=== PATIENT | male | born 1970 | race Caucasian/White ===

== ENCOUNTER 2021-11-29 17:05 | Inpatient (IN) ==
--- NOTE | 2021-11-29 17:37 | CT ---
HISTORYAMSSTUDYBRAIN W/O CONCOMPARISONNone available.TECHNIQUEAxial non-contrast images of the head with coronal and sagittal reformats.Radiation dose: 2849.60 mGy-cm total DLPFINDINGSNo abnormal areas of acute attenuation in the brain parenchyma.Maher-white differentiation remains intact.No intracranial, extra-axial, fluid collection.No hemorrhage.No mass, mass effect or midline shift.No ventriculomegaly.No acute fracture.Sinuses are well aerated.Mastoid air cells are well aerated.Globes and intraorbital contents are unremarkable.IMPRESSIONNo acute intracranial abnormality identified.Electronically signed by: Ari Ivy (November 29, 2021 17:35:58)
[2021-11-29] MEDS ORDERED: NS 1,000 ML IV 1,000 ML ONE ×2 (17:40→20:10)
[2021-11-29] MEDS ORDERED: NS 1,000 ML IV 1,000 ML IV ONE (17:47)
--- NOTE | 2021-11-29 18:03 | DR.AMS ---
HPI Time Seen Time Seen by Provider: 11/29/21 17:33 PCP Primary Care Physician: MD RODGER HPI Comment HPI Comment: A 51 y/o male presenting via EMS with AMS. hx. was obtained from his who noted the change abbout an hour prior to EMS being activated. She was trying to see if she could cajoule and arouse him. He has hx. of a Stage 3 rectal cancer and was just about to be fed. She states she got SBP of 114 at home and HR was in the 120s. His words are just very sparse and not his baseline. He had been getting Chemotherapy until 3 weeks ago but that was discontinued due to so much weight loss. Complaint Chief Complaint:: EMS states reported pt became weak and altered approx 1 hour prior to her calling 911. Pt is alert on arrival but does not answer questions. He will say " yeah" and "huh". He is gazing around room and will not focus on nurse speaking to him. Pt was taken to CT immediatly on arrival to ER. COVID-19 Coronavirus risk:travel/contact w/high risk person: No Has patient experienced Coronavirus symptoms: No Reviewed Nurses Notes Reviewed: Yes Source History Provided: Family Member and EMS Mode of Arrival Mode of Arrival: EMS Timing Onset of Chief Complaint: 11/29/21 Came On: Gradually Quality Quality: Decreased Alertness Context Recent: None History Of: Immunosuppresion Associated Signs and Symptoms Associated Signs and Symptoms: Confusion PMH PMH Past Medical History: Yes Past Medical History: GERD and Hypertension Past Medical History Comment: cancer Past Surgical History: Yes Past Surgical History Comment: port placement Family History History of Family Medical Conditions: Yes Family Medical History: Hypertension Social History Do you use any recreational Drugs:: No Travel Risk Coronavirus risk:travel/contact w/high risk person: No Has patient experienced Coronavirus symptoms: No Infectious screening In the last 2 months have you had wt loss of >10#?: NO Have you had fever, night sweats or hemotysis?: No Have you traveled outside the country in the last 6 months?: No Isolation: Standard ROS Review of Systems Constitutional: No Symptoms Reported Eyes: No Symptoms Reported ENTM: No Symptoms Reported Respiratoy: No Symptoms Reported Cardiovascular: No Symptoms Reported Gastrointestinal/Abdominal: No Symptoms Reported Genitourinary: No Symptoms Reported Neurological: Other (decreased ) Musculoskeletal: No Symptoms Reported Integumentary: No Symptoms Reported Hematologic/Lymphatic: No Symptoms Reported Endocrine: No Symptoms Reported Psychiatric: No Symptoms Reported PE Vitals Vital Signs: Temp Pulse Resp BP BP Pulse Ox 11/29/21 18:30 143 H 25 H 112/79 11/29/21 18:15 142 H 37 H 11/29/21 18:14 143 H 37 H 119/60 11/29/21 18:11 144 H 35 H 11/29/21 18:07 92/56 11/29/21 18:01 92/65 11/29/21 18:00 94/64 11/29/21 17:56 137 H 28 H 11/29/21 17:48 135 H 20 97/64 11/29/21 17:45 138 H 21 11/29/21 17:38 143 H 22 98/68 11/29/21 17:32 96.9 F L 144 H 20 100/61 96 11/29/21 17:30 146 H 18 11/29/21 17:18 151 H 27 H 93 L 11/29/21 17:17 100/61 08/28/21 11:18 121/74 08/02/19 04:31 174/84 General Limitations: No Limitations General Appearance: In No Apparent Distress, Lethargic, Cachectic and Other (awake) Head Head Exam: Normal Inspection, Atraumatic and Normocephalic Eyes Eye exam: Normal Appearance and PERRL ENT ENT Exam: Normal Exam, Normal Oropharynx, Normal External Ear Exam and Mucous Membranes Moist Neck Neck Exam: Normal Inspection, Full ROM and Trachea Midline Chest Chest Inspection: Normal Inspection, Symmetric Chest Wall Rise and Other (a port-a cath is noted inferior to the Lt. lateral Clavicle ) Respiratory Respiratory Exam: Normal Lung Sounds Bilat Cardiovascular Cardiovascular Exam: Regular Rate, Normal Rhythm, Normal Heart Sounds, +S1 and +S2 Abdominal Exam Abdominal Exam: Normal Inspection, Normal Bowel Sounds and Soft Extremities Extremities Exam: Normal Inspection and Full ROM Back Back Exam: Normal Inspection Neurological Neurological Exam: Alert Psychological Psychiatric Exam: Flat Affect Expanded Psychiatric Exam: Poor Eye Contact Skin Skin Exam: Intact MDM Additional Information Obtained Additional Information Obtained From: Family Differential Diagnosis Metabolic: Dehydration and Hypercalcemia Infectious: Sepsis and UTI COURSE Treatment Treatment: He has a leukocytosis with unclear infectious source. He had been tachycardic and hypotensive. both of these responded to IVF chalenges. He was supplemented with KRider per protocol and Magnessium supplementation also. He had IV Zosyn for abx. coverage. I had spoke with his spouse about presentation, test results and needing to be hospitalzed. She verbalized understanding of this. I also spoke with on-call provider (Dr. Muro) and he agrees to admission. Bridge admit orders have been placed. Reevaluation 1st: Unchanged Education/Counseling Education/Counseling: Family, Education and Counseling Educated On: Treatment, Diagnosis, Prognosis and Needs for Follow Up Critical Care Notes Total Time (mins): 1 Critical Diagnosis: Change in MS, Hypokalemia, Hypomagnesemia, Leukocytosis, Hypotension, Tachycardia,. Critical Interventions: Interpretation of diagnostics , management of fluid and electrolyte imbalance, antibiotics, etc ROR Labs Reviewed Result Diagrams: 11/29/21 17:51 11/29/21 17:51 Laboratory: WBC 21.8 X10^3/uL (3.6-10.0) H 11/29/21 17:51 RBC 4.28 X10^6/uL (4.7-6.0) L 11/29/21 17:51 Hgb 12.3 g/dL (13.5-18.0) L 11/29/21 17:51 Hct 36.6 % (42.0-54.0) L 11/29/21 17:51 MCV 85.4 fL (80.0-100.0) 11/29/21 17:51 MCH 28.7 pg (27.0-34.0) 11/29/21 17:51 MCHC 33.6 g/dL (33.0-35.0) 11/29/21 17:51 RDW 15.7 % (11.6-16.5) 11/29/21 17:51 Plt Count 236 X10^3/uL (150.0-450.0) 11/29/21 17:51 Plt Count Comment Adequate (ADEQUATE) 11/29/21 17:51 MPV 8.8 fL (7.4-11.0) 11/29/21 17:51 Neut % (Auto) 96.8 % (42.0-75.0) H 11/29/21 17:51 Lymph % (Auto) 1.7 % (21.0-51.0) L 11/29/21 17:51 [place] % (Auto) 0.6 % (0.0-13.0) 11/29/21 17:51 Eos % (Auto) 0.7 % (0.9-2.9) L 11/29/21 17:51 Baso % (Auto) 0.2 % (0.2-1.0) 11/29/21 17:51 Neut # (Auto) 21.1 x10^3/uL (2.2-4.8) H 11/29/21 17:51 Lymph # (Auto) 0.4 X10^3/uL (1.3-2.9) L 11/29/21 17:51 [place] # (Auto) 0.1 x10^3/uL (0.3-0.8) L 11/29/21 17:51 Eos # (Auto) 0.1 x10^3/uL (0.0-0.2) 11/29/21 17:51 Baso # (Auto) 0.0 X10^3/uL (0.0-0.1) 11/29/21 17:51 Absolute Nucleated RBC 0.0 /100WBC 11/29/21 17:51 Total Counted 100 11/29/21 17:51 Neutrophils % (Manual) 95 % (39-76) H 11/29/21 17:51 Lymphocytes % (Manual) 4 % (13-43) L 11/29/21 17:51 Monocytes % (Manual) 1 % (4-9) L 11/29/21 17:51 Plt Morphology Comment Normal (NORMAL) 11/29/21 17:51 RBC Morphology Normal (NORMAL) 11/29/21 17:51 Sodium 133 mmol/L (136-145) L 11/29/21 17:51 Corrected Sodium TNP 11/29/21 17:51 Potassium 2.4 mmol/L (3.5-5.1) L* 11/29/21 17:51 Chloride 92 mmol/L (98-107) L 11/29/21 17:51 Carbon Dioxide 25.6 mmol/L (21-32) 11/29/21 17:51 BUN 11 mg/dL (7-18) 11/29/21 17:51 Creatinine 1.07 mg/dL (0.70-1.30) 11/29/21 17:51 Est GFR (MDRD) Af Amer > 60 (>60) 11/29/21 17:51 Est GFR (MDRD) Non-Af > 60 (>60) 11/29/21 17:51 Glucose 91 mg/dL (65-99) 11/29/21 17:51 Calcium 8.5 mg/dL (8.5-10.1) 11/29/21 17:51 Corrected Calcium 10.7 mg/dL (8.5-10.1) H 11/29/21 17:51 Magnesium 1.6 mg/dL (1.7-2.9) L 11/29/21 17:51 Total Bilirubin 0.70 mg/dL (0.2-1.0) 11/29/21 17:51 AST 45 Units/L (15-37) H 11/29/21 17:51 ALT 20 Units/L (12-78) 11/29/21 17:51 Alkaline Phosphatase 291 Units/L (46-116) H 11/29/21 17:51 Ammonia < 10.0 umol/L (11-32) L 11/29/21 17:51 Total Protein 6.7 g/dL (6.4-8.2) 11/29/21 17:51 Albumin 1.3 g/dL (3.4-5.0) L 11/29/21 17:51 Globulin 5.4 g/dL (2.5-4.5) H 11/29/21 17:51 Albumin/Globulin Ratio 0.2 Ratio (1.1-2.1) L 11/29/21 17:51 Specimen Type Catherized urine 11/29/21 18:15 Urine Color Yellow (YELLOW) 11/29/21 18:15 Urine Appearance Slightly hazy (CLEAR) 11/29/21 18:15 Urine pH 6.0 (5.0 - 8.0) 11/29/21 18:15 Ur Specific [place] 1.015 (1.000-1.030) 11/29/21 18:15 Urine Protein 2+ (NEGATIVE) 11/29/21 18:15 Urine Glucose (UA) Negative (NEGATIVE) 11/29/21 18:15 Urine Ketones Negative (NEGATIVE) 11/29/21 18:15 Urine Blood 1+ (NEGATIVE) 11/29/21 18:15 Urine Nitrite Negative (NEGATIVE) 11/29/21 18:15 Urine Bilirubin Negative (NEGATIVE) 11/29/21 18:15 Urine Urobilinogen Normal (NORMAL) 11/29/21 18:15 Ur Leukocyte Esterase Negative (NEGATIVE) 11/29/21 18:15 Urine RBC 3-5 /HPF (0-3) A 11/29/21 18:15 Urine WBC 0-2 /HPF (0-5) 11/29/21 18:15 Ur Squamous Epith Cells Few /HPF (NEGATIVE) 11/29/21 18:15 Ur Transition Epith Cell Few /HPF (NEGATIVE) 11/29/21 18:15 Ur Renal Epithelial Cell Few /HPF (NEGATIVE) 11/29/21 18:15 Amorphous Sediment 1+ /HPF (NEGATIVE) 11/29/21 18:15 Urine Bacteria Trace /HPF (NEGATIVE) 11/29/21 18:15 Urine Sperm Few /HPF (NEGATIVE) 11/29/21 18:15 Ur Culture Indicated? No/not indicated 11/29/21 18:15 Urine Opiates Screen Negative (NEG=<300) 11/29/21 18:15 Urine Methadone Screen Negative (NEG=<300) 11/29/21 18:15 Ur Barbiturates Screen Negative (NEG=<200) 11/29/21 18:15 Ur Phencyclidine Scrn Negative (NEG=<25) 11/29/21 18:15 Ur Amphetamines Screen Negative (NEG=<1000) 11/29/21 18:15 U Benzodiazepines Scrn Positive (NEG=<200) 11/29/21 18:15 Urine Cocaine Screen Negative (NEG=<300) 11/29/21 18:15 U Marijuana (THC) Screen Positive (NEG=<50) A 11/29/21 18:15 SARS-CoV-2 (PCR) Negative (NEGATIVE) 11/29/21 19:55 EKG Rate: 142 [place]: Normal Rhythm: ST Block: None Hypertrophy: None ST: Normal Opioid Opioid Risk Tool Age (Michael box if 16-45): No History of Preadolescent Sexual Abuse: No Total: 0 Total Score Risk Category: Low Risk Copyright: [employer]ley LR predicting aberrant behaviors Diagnosis Discharge Problem: Acute hypokalemia, Acute hypotension, Tachycardia, Neutrophilic leukocytosis, Hypomagnesemia, Rectal cancer Altered mental status Qualifiers: Altered mental status type: somnolence Qualified Code(s): R40.0 - Somnolence
[2021-11-29 18:15] LABS: BASOPHILS % (AUTO) 0.2 % (0.2-1.0); EOSINOPHILS # (AUTO) 0.1 x10^3/uL (0.0-0.2); EOSINOPHILS % (AUTO) 0.7 % (0.9-2.9); HEMATOCRIT 36.6 % (42.0-54.0); HEMOGLOBIN 12.3 g/dL (13.5-18.0); LYMPHOCYTES # (AUTO) 0.4 X10^3/uL (1.3-2.9); LYMPHOCYTES % (AUTO) 1.7 % (21.0-51.0); MEAN CORPUSCULAR HEMOGLOBIN 28.7 pg (27.0-34.0); MEAN CORPUSCULAR HGB CONC 33.6 g/dL (33.0-35.0); MEAN CORPUSCULAR VOLUME 85.4 fL (80.0-100.0); MEAN PLATELET VOLUME 8.8 fL (7.4-11.0); MONOCYTES # (AUTO) 0.1 x10^3/uL (0.3-0.8); MONOCYTES % (AUTO) 0.6 % (0.0-13.0); NEUTROPHILS # (AUTO) 21.1 x10^3/uL (2.2-4.8); NEUTROPHILS % (AUTO) 96.8 % (42.0-75.0); RED BLOOD COUNT 4.28 X10^6/uL (4.7-6.0); RED CELL DISTRIBUTION WIDTH 15.7 % (11.6-16.5); WHITE BLOOD COUNT 21.8 X10^3/uL (3.6-10.0)
[2021-11-29 18:20] LABS: ALANINE AMINOTRANSFERASE 20 Units/L (12-78); ALBUMIN 1.3 g/dL (3.4-5.0); ALKALINE PHOSPHATASE 291 Units/L (46-116); ASPARTATE AMINO TRANSFERASE 45 Units/L (15-37); BLOOD UREA NITROGEN 11 mg/dL (7-18); CALCIUM 8.5 mg/dL (8.5-10.1); CARBON DIOXIDE 25.6 mmol/L (21-32); CHLORIDE 92 mmol/L (98-107); COR CA(FOR HYPOALB) 10.7 mg/dL (8.5-10.1); CREATININE 1.07 mg/dL (0.70-1.30); SODIUM 133 mmol/L (136-145); TOTAL PROTEIN 6.7 g/dL (6.4-8.2); eGFR NON BLACK RACES > 60 (>60)
[2021-11-29 18:22] LABS: BILIRUBIN,URINE NEGATIVE (NEGATIVE); BLOOD/HEMOGLOBIN,URINE 1+ (NEGATIVE); GLUCOSE, URINE NEGATIVE (NEGATIVE); KETONES,URINE NEGATIVE (NEGATIVE); LEUKOCYTE ESTERASE ,URINE NEGATIVE (NEGATIVE); NITRITES,URINE NEGATIVE (NEGATIVE); PROTEIN,URINE 2+ (NEGATIVE); UROBILINOGEN,URINE NORMAL (NORMAL)
[2021-11-29 18:26] LABS: AMMONIA < 10.0 umol/L (11-32)
[2021-11-29 18:28] LABS: APPEARANCE,URINE SLIGHTLY HAZY (CLEAR); COLOR,URINE YELLOW (YELLOW)
[2021-11-29] MEDS ORDERED: K-RIDER 10 MEQ/NS 100 ML 10 MEQ/100 ML BAG IV ONE ×6 (18:35→21:30)
[2021-11-29 18:41] LABS: BACTERIA,URINE TRACE /HPF (NEGATIVE); RENAL EPITHELIAL CELLS,URINE FEW /HPF (NEGATIVE); SQUAMOUS EPITHELIAL CELL,UR FEW /HPF (NEGATIVE); TRANSITIONAL EPI CELLS,URINE FEW /HPF (NEGATIVE)
[2021-11-29 18:42] LABS: SPERM,URINE FEW /HPF (NEGATIVE)
[2021-11-29 18:46] LABS: PLATELET MORPHOLOGY COMMENT NORMAL (NORMAL)
--- NOTE | 2021-11-29 19:04 | RAD ---
HISTORYALTERED MENTAL STATUS Relevant Clinical InformationSTUDYCHEST, 1 VIEWCOMPARISONFINDINGSHeart size is normal. There is a left subclavian piedad catheter with tip in the superior vena cava. Pulmonary blood flow is congested. There is prominence of interstitial markings diffusely, right worse than left. This could be due to edema but infection is not excluded. There is no pleural effusion.IMPRESSIONNonspecific prominence of the interstitial markings. Question interstitial edema versus atypical infection..Electronically signed by: Lalit Negro (November 29, 2021 19:03:32)
[2021-11-29] MEDS ORDERED: ATIVAN INJ 2 MG VIAL IVP ONE (19:39)
[2021-11-29] MEDS ORDERED: ZOSYN VIAL 3.375 GRAMS 3.375 G in NS 100 ML IV 100 ML IV ONE (19:40)
[2021-11-29] MEDS ORDERED: ATIVAN INJ 2 MG VIAL ONE (19:45)
[2021-11-29] MEDS ORDERED: ZOSYN VIAL 3.375 GRAMS IV ONE (19:45)
[2021-11-29] MEDS ORDERED: NS 100 ML IV 100 ML ONE (19:45)
[2021-11-29] MEDS: NS 1,000 ML IV 1,000 ML IV SCH ×2 (20:19→22:31)
[2021-11-29] MEDS ORDERED: CARDIZEM INJ 50 MG VIAL IVP ONE (20:24)
[2021-11-29] MEDS ORDERED: MAGNESIUM SULFATE 1 GRAM/100 mL PREMIX 1 G/100 ML BAG IV ONE ×2 (21:01→21:36)
[2021-11-29] MEDS: MAGNESIUM SULFATE 1 GRAM/100 mL PREMIX 1 G/100 ML BAG IV SCH ×2 (21:17→21:39)
[2021-11-29] MEDS: MAGNESIUM SULFATE 1 GRAM/100 mL PREMIX 1 G/100 ML BAG IV ONE (21:37)
[2021-11-29 23:20] VITALS: BMI 18.6
[2021-11-30 04:48] LABS: BASOPHILS % (AUTO) 0.2 % (0.2-1.0); EOSINOPHILS % (AUTO) 0.1 % (0.9-2.9); HEMATOCRIT 27.7 % (42.0-54.0); LYMPHOCYTES # (AUTO) 0.9 X10^3/uL (1.3-2.9); LYMPHOCYTES % (AUTO) 3.8 % (21.0-51.0); MEAN CORPUSCULAR HEMOGLOBIN 28.9 pg (27.0-34.0); MEAN CORPUSCULAR HGB CONC 33.6 g/dL (33.0-35.0); MEAN CORPUSCULAR VOLUME 86.1 fL (80.0-100.0); MEAN PLATELET VOLUME 9.2 fL (7.4-11.0); MONOCYTES # (AUTO) 0.9 x10^3/uL (0.3-0.8); NEUTROPHILS # (AUTO) 21.3 x10^3/uL (2.2-4.8); NEUTROPHILS % (AUTO) 91.9 % (42.0-75.0); RED BLOOD COUNT 3.22 X10^6/uL (4.7-6.0); RED CELL DISTRIBUTION WIDTH 15.5 % (11.6-16.5); WHITE BLOOD COUNT 23.1 X10^3/uL (3.6-10.0)
[2021-11-30 05:03] LABS: ALANINE AMINOTRANSFERASE 16 Units/L (12-78); ALBUMIN 0.9 g/dL (3.4-5.0); ALKALINE PHOSPHATASE 157 Units/L (46-116); ASPARTATE AMINO TRANSFERASE 27 Units/L (15-37); BLOOD UREA NITROGEN 12 mg/dL (7-18); CALCIUM 7.6 mg/dL (8.5-10.1); CARBON DIOXIDE 27.4 mmol/L (21-32); CHLORIDE 100 mmol/L (98-107); COR CA(FOR HYPOALB) 10.1 mg/dL (8.5-10.1); CREATININE 0.61 mg/dL (0.70-1.30); SODIUM 135 mmol/L (136-145); eGFR NON BLACK RACES > 60 (>60)
[2021-11-30] MEDS: NS 1,000 ML IV 1,000 ML IV SCH ×4 (05:11→22:12)
[2021-11-30] MEDS: ZOSYN VIAL 3.375 GRAMS 3.375 G in NS 100 ML IV 100 ML IV SCH ×3 (05:11→22:12)
[2021-11-30 05:19] LABS: HEMOGLOBIN 9.3 g/dL (13.5-18.0)
[2021-11-30 05:29] LABS: BAND NEUTROPHILS % 7 % (0-10); PLATELET MORPHOLOGY COMMENT NORMAL (NORMAL); TARGET CELLS PRESENT
[2021-11-30] MEDS ORDERED: PHARMACY CONSULT - TPN XX SCH (09:00)
[2021-11-30 11:47] LABS: CRYPTOSPORIDIUM PARVUM ANTIGEN NEGATIVE (NEGATIVE); GIARDIA LAMBLIA ANTIGEN NEGATIVE (NEGATIVE)
[2021-11-30] MEDS ORDERED: DEXTROSE 10% 1,000 ML IV PRN (12:19)
[2021-11-30] MEDS ORDERED: NovoLIN R (or HumuLIN R) SUBCUT PRN (12:19)
[2021-11-30] MEDS: CLINIMIX 5 %/20 % 1,000 ML with MVI INJ (ADULT) 10 ML, TPN ELECTROLYTES 20 ML IV SCH ×6 (13:15→22:09)
[2021-11-30 13:21] LABS: PHOSPHORUS 3.4 mg/dL (2.6-4.7)
--- NOTE | 2021-11-30 15:27 | DR.H&P ---
H&P History & Physical for Day of: H&P Date: 11/30/21 Chief Complaint Chief Complaint: Altered mental status Allergies Allergies Allergy/AdvReac Type Severity Reaction Status Date / Time No Known Drug Allergies Allergy Verified 08/02/19 00:59 History of Present Illness History of Present Illness: Pt is a 51 year old male with medical history of colorectal cancer(followed by Dr Vicente Spence) presenting with altered mental status. Pt's noted the change an hour before presentation at the ER that included confusion. She states he has been weak and has had reduced po intake with weight loss. He had been getting chemotherapy until 2-3 weeks ago and recently had neupogen due to leukopenia. Labs/imaging: Wbc 23.1, Hgb 9.3, Plt 128, Na 135, K 2.4>3.4, Creatinine 0.61, Glucose 96, Mag 1.6>2.0, UA negative, Ammonia negative, Toxicology:+thc, +benzodiazepine, COVID-19 negative, Blood cultures pending, CT head: No acute intracranial abnormality. CXR was obtained that revealed: Nonspecific prominence of the interstitial markings. Question interstitial edema versus atypical infection. Pt admitted for altered mental status and infection of unknown source at this time. He is still altered on exam. Will keep NPO and start nutritional supplementation TPN, IVF NS, and antibiotics Zosyn, as we await culture results. Repeat CXR in the morning to rule out pneumonia. Replete potassium and magnesium per protocol. Pt does have loose stools will get culture, ova/parasite, and C. diff PCR. Continue to closely monitor and follow up labs/imaging. Time spent on clinical assessment, reviewing labs and imaging, decision making, and documentation greater than 45 minutes. Past Medical History Past Medical History: GERD and Hypertension Family History Family Medical History: Cancer Social History Does patient currently use any type of tobacco product: Yes Have you used tobacco products in the last 12 months: Yes Type of Tobacco Use: Cigarettes How many years tobacco product used: 30 Alcohol Use: None Drug Use: Marijuana Medications Home Medications: No Known Drug Allergies Allergy (Verified 08/02/19 00:59) Labs Result Diagrams: 12/01/21 05:23 12/01/21 03:14 Labs: 11/30/21 08:20 Stool - Final Laboratory WBC 23.1 X10^3/uL (3.6-10.0) H 05/16/22 04:27 RBC 3.22 X10^6/uL (4.7-6.0) L 11/30/21 04:27 Hgb 9.3 g/dL (13.5-18.0) L D 11/30/21 04:27 Hct 27.7 % (42.0-54.0) L 11/30/21 04:27 MCV 86.1 fL (80.0-100.0) 11/30/21 04: MCH 28.9 pg (27.0-34.0) 11/30/21 04: MCHC 33.6 g/dL (33.0-35.0) 11/30/21: RDW 15.5 % (11.6-16.5) 11/30/21: Plt Count 128 X10^3/uL (150.0-450.0) L 11/30/21 04: Plt Count Comment Decreased (ADEQUATE) 11/30/21 04: MPV 9.2 fL (7.4-11.0) 11/30/21 04: Neut % (Auto) 91.9 % (42.0-75.0) H 11/30/21 04: Lymph % (Auto) 3.8 % (21.0-51.0) L 11/30/21 04: [place] % (Auto) 4.0 % (0.0-13.0) 11/30/21 04: Eos % (Auto) 0.1 % (0.9-2.9) L 11/30/21 04: Baso % (Auto) 0.2 % (0.2-1.0) 11/30/21 04:27 Neut # (Auto) 21.3 x10^3/uL (2.2-4.8) H 11/30/21 04:27 Lymph # (Auto) 0.9 X10^3/uL (1.3-2.9) L 11/30/21 04:27 [place] # (Auto) 0.9 x10^3/uL (0.3-0.8) H 11/30/21 04:27 Eos # (Auto) 0.0 x10^3/uL (0.0-0.2) 11/30/21 04:27 Baso # (Auto) 0.0 X10^3/uL (0.0-0.1) 11/30/21 04:27 Absolute Nucleated RBC 0.0 /100WBC 11/30/21 04:27 Total Counted 100 11/30/21 04:27 Neutrophils % (Manual) 84 % (39-76) H 11/30/21 04:27 Band Neutrophils % 7 % (0-10) 11/30/21 04:27 Lymphocytes % (Manual) 7 % (13-43) L 11/30/21 04:27 Monocytes % (Manual) 2 % (4-9) L 11/30/21 04:27 Plt Morphology Comment Normal (NORMAL) 11/30/21 04:27 RBC Morphology Abnormal (NORMAL) 11/30/21 04:27 Target Cells Present 11/30/21 04:27 Sodium 135 mmol/L (136-145) L 11/30/21 04:27 Corrected Sodium TNP 11/30/21 04:27 Potassium 3.4 mmol/L (3.5-5.1) L 11/30/21 04:27 Chloride 100 mmol/L (98-107) 11/30/21 04:27 Carbon Dioxide 27.4 mmol/L (21-32) 11/30/21 04:27 BUN 12 mg/dL (7-18) 11/30/21 04:27 Creatinine 0.61 mg/dL (0.70-1.30) L 11/30/21 04:27 Est GFR (MDRD) Af Amer > 60 (>60) 11/30/21 04:27 Est GFR (MDRD) Non-Af > 60 (>60) 11/30/21 04:27 Glucose 96 mg/dL (65-99) 11/30/21 04:27 POC Glucose (mg/dL) 87 mg/dL (65-99) 11/30/21 12:50 Lactic Acid 0.8 mmol/L (0.4-2.0) 11/30/21 04:27 Calcium 7.6 mg/dL (8.5-10.1) L 11/30/21 04:27 Corrected Calcium 10.1 mg/dL (8.5-10.1) 11/30/21 04:27 Phosphorus 3.4 mg/dL (2.6-4.7) 11/30/21 04:27 Magnesium 2.0 mg/dL (1.7-2.9) 11/30/21 04:27 Total Bilirubin 0.40 mg/dL (0.2-1.0) 11/30/21 04:27 AST 27 Units/L (15-37) 11/30/21 04:27 ALT 16 Units/L (12-78) 11/30/21 04:27 Alkaline Phosphatase 157 Units/L (46-116) H 11/30/21 04:27 Ammonia < 10.0 umol/L (11-32) L 11/29/21 17:51 Total Protein 5.0 g/dL (6.4-8.2) L 11/30/21 04:27 Albumin 0.9 g/dL (3.4-5.0) L 11/30/21 04:27 Globulin 4.1 g/dL (2.5-4.5) 11/30/21 04:27 Albumin/Globulin Ratio 0.2 Ratio (1.1-2.1) L 11/30/21 04:27 Triglycerides 114 mg/dL (0-150) 11/30/21 04:27 Specimen Type Catherized urine 11/29/21 18:15 Urine Color Yellow (YELLOW) 11/29/21 18:15 Urine Appearance Slightly hazy (CLEAR) 11/29/21 18:15 Urine pH 6.0 (5.0 - 8.0) 11/29/21 18:15 Ur Specific [place] 1.015 (1.000-1.030) 11/29/21 18:15 Urine Protein 2+ (NEGATIVE) 11/29/21 18:15 Urine Glucose (UA) Negative (NEGATIVE) 11/29/21 18:15 Urine Ketones Negative (NEGATIVE) 11/29/21 18:15 Urine Blood 1+ (NEGATIVE) 11/29/21 18:15 Urine Nitrite Negative (NEGATIVE) 11/29/21 18:15 Urine Bilirubin Negative (NEGATIVE) 11/29/21 18:15 Urine Urobilinogen Normal (NORMAL) 11/29/21 18:15 Ur Leukocyte Esterase Negative (NEGATIVE) 11/29/21 18:15 Urine RBC 3-5 /HPF (0-3) A 11/29/21 18:15 Urine WBC 0-2 /HPF (0-5) 11/29/21 18:15 Ur Squamous Epith Cells Few /HPF (NEGATIVE) 11/29/21 18:15 Ur Transition Epith Cell Few /HPF (NEGATIVE) 11/29/21 18:15 Ur Renal Epithelial Cell Few /HPF (NEGATIVE) 11/29/21 18:15 Amorphous Sediment 1+ /HPF (NEGATIVE) 11/29/21 18:15 Urine Bacteria Trace /HPF (NEGATIVE) 11/29/21 18:15 Urine Sperm Few /HPF (NEGATIVE) 11/29/21 18:15 Ur Culture Indicated? No/not indicated 11/29/21 18:15 Stool Description 1oz unformed brn sto 11/30/21 08:20 Stl C. diff Tox B Gene Negative (NEGATIVE) 11/30/21 08:20 Stl C. diff [id number] Presumptive negative (NEGATIVE) 11/30/21 08:20 Urine Opiates Screen Negative (NEG=<300) 11/29/21 18:15 Urine Methadone Screen Negative (NEG=<300) 11/29/21 18:15 Ur Barbiturates Screen Negative (NEG=<200) 11/29/21 18:15 Ur Phencyclidine Scrn Negative (NEG=<25) 11/29/21 18:15 Ur Amphetamines Screen Negative (NEG=<1000) 11/29/21 18:15 U Benzodiazepines Scrn Positive (NEG=<200) 11/29/21 18:15 Urine Cocaine Screen Negative (NEG=<300) 11/29/21 18:15 U Marijuana (THC) Screen Positive (NEG=<50) A 11/29/21 18:15 SARS-CoV-2 (PCR) Negative (NEGATIVE) 11/29/21 19:55 Cryptosporid parvum Ag Negative (NEGATIVE) 11/30/21 08:20 Giardia lamblia Ag Negative (NEGATIVE) 11/30/21 08:20 Review of Systems Constitutional: Weakness Eyes: No Symptoms Reported ENT: No Symptoms Reported Respiratory: No Symptoms Reported Cardiovascular: No Symptoms Reported Gastrointestinal: Diarrhea Genitourinary: No Symptoms Reported Musculoskeletal: No Symptoms Reported Skin: No Symptoms Reported Neurological: Confusion Physical Exam Vital Signs: Temperature 97.6 F Pulse Rate 105 Respiratory Rate 20 Blood Pressure [Left Arm] 100/70 Blood Pressure 132/82 O2 Sat by Pulse Oximetry 97 Oriented: Not Oriented Eyes: Normal Ear: Normal Nose: Normal Throat: Normal Respiratory: Clear Throughout Cardiovascular: Normal : Normal Auscultation: Bowel Sounds: Normal Palpation: Normal Tenderness: Normal Skin: Normal Musculoskeletal: Normal Assessment/Plan (1) Altered mental status: Qualifiers: Altered mental status type: somnolence Qualified Code(s): R40.0 - Somnolence Status: Acute (2) Neutrophilic leukocytosis: Status: Acute (3) Acute hypokalemia: Status: Acute Review H&P Reviewed: Yes Patient was examined?: Yes
[2021-11-30] MEDS: ATIVAN INJ 2 MG VIAL IVP PRN ×2 (17:28→22:22)
[2021-11-30] MEDS: MAGNESIUM SULFATE 1 GRAM/100 mL PREMIX 1 G/100 ML BAG IV ONE (22:24)
[2021-12-01 04:16] LABS: PREALBUMIN 5.5 mg/dL (18-35.7)
[2021-12-01 04:33] LABS: eGFR NON BLACK RACES > 60 (>60)
[2021-12-01 04:57] LABS: BLOOD UREA NITROGEN 14 mg/dL (7-18); CALCIUM 7.7 mg/dL (8.5-10.1); CHLORIDE 103 mmol/L (98-107); COR CA(FOR HYPOALB) 10.1 mg/dL (8.5-10.1); SODIUM 138 mmol/L (136-145)
[2021-12-01] MEDS: NS 1,000 ML IV 1,000 ML IV SCH ×2 (05:17→16:19)
[2021-12-01] MEDS: ZOSYN VIAL 3.375 GRAMS 3.375 G in NS 100 ML IV 100 ML IV SCH (05:20)
[2021-12-01 05:34] LABS: BASOPHILS % (AUTO) 0.3 % (0.2-1.0); HEMATOCRIT 24.8 % (42.0-54.0); HEMOGLOBIN 8.5 g/dL (13.5-18.0); LYMPHOCYTES # (AUTO) 1.1 X10^3/uL (1.3-2.9); LYMPHOCYTES % (AUTO) 7.6 % (21.0-51.0); MEAN CORPUSCULAR HEMOGLOBIN 29.3 pg (27.0-34.0); MEAN CORPUSCULAR HGB CONC 34.1 g/dL (33.0-35.0); MEAN CORPUSCULAR VOLUME 85.8 fL (80.0-100.0); MEAN PLATELET VOLUME 9.4 fL (7.4-11.0); MONOCYTES % (AUTO) 7.1 % (0.0-13.0); NEUTROPHILS # (AUTO) 11.9 x10^3/uL (2.2-4.8); RED BLOOD COUNT 2.89 X10^6/uL (4.7-6.0); RED CELL DISTRIBUTION WIDTH 15.4 % (11.6-16.5)
[2021-12-01 05:56] LABS: ALANINE AMINOTRANSFERASE 10 Units/L (12-78); ALKALINE PHOSPHATASE 153 Units/L (46-116); ASPARTATE AMINO TRANSFERASE 22 Units/L (15-37); CARBON DIOXIDE 27.8 mmol/L (21-32); COR NA(FOR HYPERGLY) 139 mmol/L (136-145); TOTAL PROTEIN 4.9 g/dL (6.4-8.2)
[2021-12-01] MEDS ORDERED: CLINIMIX 5 %/20 % 1,000 ML with MVI INJ (ADULT) 10 ML, TPN ELECTROLYTES 20 ML, POTASSIU... IV SCH ×4 (08:00)
[2021-12-01] MEDS ORDERED: ROCEPHIN VIAL 2 GRAMS 2 G in NS 100 ML IV 100 ML IV SCH (10:05)
[2021-12-01] MEDS ORDERED: VANCOMYCIN IV *PREMIX 750 mg/150 ML BAG 750 MG/150 ML PIGGYBACK IV SCH (10:30)
[2021-12-01] MEDS: ATIVAN INJ 2 MG VIAL IVP PRN ×2 (10:53→16:37)
[2021-12-01] MEDS ORDERED: PHARMACY CONSULT - VANCOMYCIN XX SCH (11:00)
[2021-12-01] MEDS: ZOVIRAX VIAL 500 MG 500 MG in NS 100 ML IV 100 ML IV SCH ×2 (11:06→14:32)
[2021-12-01] MEDS ORDERED: TORADOL 30 MG VIAL IVP ONE (11:46)
--- NOTE | 2021-12-01 12:57 | PCM.PROG ---
Progress Note Progress Note for Day of Date of Exam: 12/01/21 Subjective Subjective: Pt is a 51 year old male with medical history of colorectal cancer(adenocarcinoma) admitted with altered mental status and neutrophilic leukocytosis. He had been getting Folfox chemotherapy until 2-3 weeks ago and recently had neupogen due to leukopenia. He was kept NPO, started on nutritional supplementation TPN, IVF NS, and antibiotics Zosyn, while awaiting blood culture results. Electrolytes repleting per protocol. This morning on exam patient's mental status appeared to have become worse and he only verbalizes by babbling. Also, on exam brudzinsky test positive with pt also exhibiting nuchal rigidity. High degree suspicion for meningitis given patients history and being immunocompromised. Request urgent transfer to get patient to [facility] for spinal tap, however no beds available and no neurologist provider education specialist as well as [facility] in [place]. [facility] in [place] contacted and transfer accepted. To prevent delay of treatment with no provider available for spinal tap, initiated antibiotic treatment protocol for meningitis with Rocephin, Vancomycin, Acyclovir. Pt will be transferred to tertiary facility for higher level of care. Past Medical Family Social History Past Med/Fam/Surg Hx: No changes since H&P Allergies: Allergies No Known Drug Allergies Allergy (Verified 08/02/19 00:59) Review of Systems ROS: No change since H&P Vital Signs and I&O's Vital Signs: Temperature 99.5 F Pulse Rate 94 Respiratory Rate 25 Blood Pressure [Left Arm] 100/70 Blood Pressure 155/91 O2 Sat by Pulse Oximetry 98 Intake and Output: Intake & Output 11/28/21 11/29/21 11/30/21 12/01/21 23:59 23:59 23:59 23:59 Intake Total 2950 / 2950 665 / 665 Output Total 971 / 971 375 / 375 Balance 1978 290 / 290 Physical Exam Oriented: Not Oriented Eyes: Normal Ear: Normal Nose: Normal Throat: Normal Respiratory: Normal Cardiovascular: Normal : Normal Auscultation: Bowel Sounds: Normal Tenderness: Normal Skin: Normal Musculoskeletal: Normal Speech Pattern: Unclear and Inappropriate Laboratory and Diagnostics Result Diagrams: 12/01/21 05:23 12/01/21 03:14 Labs: 11/30/21 08:20 Stool Stool Culture - Preliminary 11/30/21 08:20 Stool - Final Laboratory WBC 14.0 X10^3/uL (3.6-10.0) H D 12/01/21 05:23 RBC 2.89 X10^6/uL (4.7-6.0) L 12/01/21 05:23 Hgb 8.5 g/dL (13.5-18.0) L 12/01/21 05:23 Hct 24.8 % (42.0-54.0) L 12/01/21 05:23 MCV 85.8 fL (80.0-100.0) 12/01/21 05:23 MCH 29.3 pg (27.0-34.0) 12/01/21 05:23 MCHC 34.1 g/dL (33.0-35.0) 12/01/21 05:23 RDW 15.4 % (11.6-16.5) 12/01/21 05:23 Plt Count 53 X10^3/uL (150.0-450.0) L 12/01/21 05:23 Plt Count Comment Decreased (ADEQUATE) 11/30/21 04:27 MPV 9.4 fL (7.4-11.0) 12/01/21 05:23 Neut % (Auto) 85.0 % (42.0-75.0) H 12/01/21 05:23 Lymph % (Auto) 7.6 % (21.0-51.0) L 12/01/21 05:23 [place] % (Auto) 7.1 % (0.0-13.0) 12/01/21 05:23 Eos % (Auto) 0.0 % (0.9-2.9) L 12/01/21 05:23 Baso % (Auto) 0.3 % (0.2-1.0) 12/01/21 05:23 Neut # (Auto) 11.9 x10^3/uL (2.2-4.8) H 12/01/21 05:23 Lymph # (Auto) 1.1 X10^3/uL (1.3-2.9) L 12/01/21 05:23 [place] # (Auto) 1.0 x10^3/uL (0.3-0.8) H 12/01/21 05:23 Eos # (Auto) 0.0 x10^3/uL (0.0-0.2) 12/01/21 05:23 Baso # (Auto) 0.0 X10^3/uL (0.0-0.1) 12/01/21 05:23 Absolute Nucleated RBC 0.0 /100WBC 12/01/21 05:23 Total Counted 100 11/30/21 04:27 Neutrophils % (Manual) 84 % (39-76) H 11/30/21 04:27 Band Neutrophils % 7 % (0-10) 11/30/21 04:27 Lymphocytes % (Manual) 7 % (13-43) L 11/30/21 04:27 Monocytes % (Manual) 2 % (4-9) L 11/30/21 04:27 Plt Morphology Comment Normal (NORMAL) 11/30/21 04:27 RBC Morphology Abnormal (NORMAL) 11/30/21 04:27 Target Cells Present 11/30/21 04:27 ESR 24 MM/HOUR (0-15) H 12/01/21 05:35 D-Dimer 2.85 ug/ml (0.0-0.57) H* 12/01/21 05:35 Sodium 138 mmol/L (136-145) 12/01/21 03:14 Corrected Sodium 139 mmol/L (136-145) 12/01/21 03:14 Potassium 2.6 mmol/L (3.5-5.1) L* 12/01/21 03:14 Chloride 103 mmol/L (98-107) 12/01/21 03:14 Carbon Dioxide 27.8 mmol/L (21-32) 12/01/21 03:14 BUN 14 mg/dL (7-18) 12/01/21 03:14 Creatinine 0.60 mg/dL (0.70-1.30) L 12/01/21 03:14 Est GFR (MDRD) Af Amer > 60 (>60) 12/01/21 03:14 Est GFR (MDRD) Non-Af > 60 (>60) 12/01/21 03:14 Glucose 122 mg/dL (65-99) H 12/01/21 03:14 POC Glucose (mg/dL) 109 mg/dL (65-99) H 12/01/21 12:29 Lactic Acid 0.8 mmol/L (0.4-2.0) 11/30/21 04:27 Calcium 7.7 mg/dL (8.5-10.1) L 12/01/21 03:14 Corrected Calcium 10.1 mg/dL (8.5-10.1) 12/01/21 03:14 Phosphorus 3.4 mg/dL (2.6-4.7) 11/30/21 04:27 Magnesium 2.0 mg/dL (1.7-2.9) 11/30/21 04:27 Total Bilirubin 0.40 mg/dL (0.2-1.0) 12/01/21 03:14 AST 22 Units/L (15-37) 12/01/21 03:14 ALT 10 Units/L (12-78) L 12/01/21 03:14 Alkaline Phosphatase 153 Units/L (46-116) H 12/01/21 03:14 Ammonia < 10.0 umol/L (11-32) L 11/29/21 17:51 Troponin I High Sens 88.4 ng/L (4.0-60.0) H* 12/01/21 05:35 C-Reactive Protein 87.90 mg/L (0-3.0) H 12/01/21 05:35 Total Protein 4.9 g/dL (6.4-8.2) L 12/01/21 03:14 Albumin 1.0 g/dL (3.4-5.0) L 12/01/21 03:14 Globulin 3.9 g/dL (2.5-4.5) 12/01/21 03:14 Albumin/Globulin Ratio 0.3 Ratio (1.1-2.1) L 12/01/21 03:14 Prealbumin 5.5 mg/dL (18-35.7) L 12/01/21 03:14 Triglycerides 114 mg/dL (0-150) 11/30/21 04:27 Specimen Type Catherized urine 11/29/21 18:15 Urine Color Yellow (YELLOW) 11/29/21 18:15 Urine Appearance Slightly hazy (CLEAR) 11/29/21 18:15 Urine pH 6.0 (5.0 - 8.0) 11/29/21 18:15 Ur Specific [place] 1.015 (1.000-1.030) 11/29/21 18:15 Urine Protein 2+ (NEGATIVE) 11/29/21 18:15 Urine Glucose (UA) Negative (NEGATIVE) 11/29/21 18:15 Urine Ketones Negative (NEGATIVE) 11/29/21 18:15 Urine Blood 1+ (NEGATIVE) 11/29/21 18:15 Urine Nitrite Negative (NEGATIVE) 11/29/21 18:15 Urine Bilirubin Negative (NEGATIVE) 11/29/21 18:15 Urine Urobilinogen Normal (NORMAL) 11/29/21 18:15 Ur Leukocyte Esterase Negative (NEGATIVE) 11/29/21 18:15 Urine RBC 3-5 /HPF (0-3) A 11/29/21 18:15 Urine WBC 0-2 /HPF (0-5) 11/29/21 18:15 Ur Squamous Epith Cells Few /HPF (NEGATIVE) 11/29/21 18:15 Ur Transition Epith Cell Few /HPF (NEGATIVE) 11/29/21 18:15 Ur Renal Epithelial Cell Few /HPF (NEGATIVE) 11/29/21 18:15 Amorphous Sediment 1+ /HPF (NEGATIVE) 11/29/21 18:15 Urine Bacteria Trace /HPF (NEGATIVE) 11/29/21 18:15 Urine Sperm Few /HPF (NEGATIVE) 11/29/21 18:15 Ur Culture Indicated? No/not indicated 11/29/21 18:15 Stool Description 1oz unformed brn sto 11/30/21 08:20 Stl C. diff Tox B Gene Negative (NEGATIVE) 11/30/21 08:20 Stl C. diff [id number] Presumptive negative (NEGATIVE) 11/30/21 08:20 Urine Opiates Screen Negative (NEG=<300) 11/29/21 18:15 Urine Methadone Screen Negative (NEG=<300) 11/29/21 18:15 Ur Barbiturates Screen Negative (NEG=<200) 11/29/21 18:15 Ur Phencyclidine Scrn Negative (NEG=<25) 11/29/21 18:15 Ur Amphetamines Screen Negative (NEG=<1000) 11/29/21 18:15 U Benzodiazepines Scrn Positive (NEG=<200) 11/29/21 18:15 Urine Cocaine Screen Negative (NEG=<300) 11/29/21 18:15 U Marijuana (THC) Screen Positive (NEG=<50) A 11/29/21 18:15 SARS-CoV-2 (PCR) Negative (NEGATIVE) 11/29/21 19:55 Cryptosporid parvum Ag Negative (NEGATIVE) 11/30/21 08:20 Giardia lamblia Ag Negative (NEGATIVE) 11/30/21 08:20 Plan (1) Altered mental status: Status: Acute Qualifiers: Altered mental status type: somnolence Qualified Code(s): R40.0 - Somnolence (2) Neutrophilic leukocytosis: Status: Acute (3) Acute hypokalemia: Status: Acute
[2021-12-01 17:17] VITALS: BP 130/76
[2021-12-02] MEDS ORDERED: PHARMACY COMMENT IV NR (20:30)
--- NOTE | 2021-12-03 15:34 | W.DIS.FURT ---
Summary of Discharge Discharge Summary of Date Date of Exam: 12/01/21 Admission Date Date of Admission: 11/29/21 Admission Diagnosis Patient Problems (Updated 11/29/21 @ 21:20 by SHIRLEY CARTER) Altered mental status (Acute) R41.82 Acute hypokalemia (Acute) E87.6 Acute hypotension (Acute) I95.9 Tachycardia (Acute) R00.0 Neutrophilic leukocytosis (Acute) D72.9 Hypomagnesemia (Acute) E83.42 Rectal cancer (Acute) C20 Hospital Course: Pt is a 51 year old male with medical history of colorectal cancer(adenocarcinoma) admitted with altered mental status and neutrophilic leukocytosis. He had been getting Folfox chemotherapy until 2-3 weeks ago and recently had neupogen due to leukopenia. He was kept NPO, started on nutritional supplementation TPN, IVF NS, and antibiotics Zosyn, while awaiting blood culture results. Electrolytes repleting per protocol. This morning on exam patient's mental status appeared to have become worse and he only verbalizes by babbling. Also, on exam brudzinsky test positive with pt also exhibiting nuchal rigidity. High degree suspicion for meningitis given patients history and being immunocompromised. Request urgent transfer to get patient to [facility] for spinal tap, however no beds available and no neurologist organ tuner electronic as well as [facility] in [place] contacted and transfer accepted. To prevent delay of treatment with no provider available for spinal tap, initiated antibiotic treatment protocol for meningitis with Rocephin, Vancomycin, Acyclovir. Pt will be transferred to tertiary facility for higher level of care. Vital Signs: Vital Signs (72 hours) 11/30/21 16:00 11/30/21 17:00 11/30/21 18:00 Temperature Pulse Rate 104 H 105 H 101 H Respiratory Rate 22 26 H 27 H Blood Pressure 130/81 160/91 140/90 O2 Sat by Pulse Oximetry 93 L 95 93 L 11/30/21 19:00 11/30/21 19:30 11/30/21 20:00 Temperature 98.3 F Pulse Rate 163 H 99 H 104 H Respiratory Rate Blood Pressure 154/91 148/90 144/91 O2 Sat by Pulse Oximetry 96 96 97 11/30/21 20:30 11/30/21 21:00 11/30/21 21:30 Temperature Pulse Rate 102 H 100 H 96 H Respiratory Rate 20 19 22 Blood Pressure 143/79 153/97 146/88 O2 Sat by Pulse Oximetry 96 97 97 11/30/21 22:00 11/30/21 22:30 11/30/21 23:00 Temperature Pulse Rate 96 H 100 H 95 H Respiratory Rate 21 22 22 Blood Pressure 153/95 154/94 142/87 O2 Sat by Pulse Oximetry 97 98 99 11/30/21 23:30 12/01/21 00:00 12/01/21 00:30 Temperature 98.0 F Pulse Rate 104 H 103 H 103 H Respiratory Rate 18 21 27 H Blood Pressure 136/81 152/91 139/93 O2 Sat by Pulse Oximetry 98 98 96 12/01/21 01:00 12/01/21 01:04 12/01/21 01:30 Temperature Pulse Rate 109 H 106 H 93 H Respiratory Rate 38 H 20 24 Blood Pressure 157/90 143/83 O2 Sat by Pulse Oximetry 97 99 99 12/01/21 02:00 12/01/21 02:30 12/01/21 03:00 Temperature Pulse Rate 107 H 90 101 H Respiratory Rate 34 H 24 46 H Blood Pressure 147/99 136/82 142/92 O2 Sat by Pulse Oximetry 97 97 96 12/01/21 03:30 12/01/21 04:00 12/01/21 04:30 Temperature 99.0 F Pulse Rate 103 H 98 H 94 H Respiratory Rate 25 H 19 26 H Blood Pressure 130/73 136/88 144/85 O2 Sat by Pulse Oximetry 96 96 97 12/01/21 05:00 12/01/21 05:30 12/01/21 06:00 Temperature Pulse Rate 93 H 96 H 92 H Respiratory Rate 26 H 24 26 H Blood Pressure 138/89 149/91 144/90 O2 Sat by Pulse Oximetry 95 97 96 12/01/21 06:30 12/01/21 07:00 12/01/21 07:30 Temperature Pulse Rate 91 H 95 H 92 H Respiratory Rate 38 H 14 22 Blood Pressure 135/86 154/92 149/96 O2 Sat by Pulse Oximetry 90 L 98 98 12/01/21 08:00 12/01/21 08:30 12/01/21 08:36 Temperature 99.5 F Pulse Rate 87 82 94 H Respiratory Rate 28 H 21 21 Blood Pressure 149/90 177/85 171/90 O2 Sat by Pulse Oximetry 96 98 98 12/01/21 08:43 12/01/21 09:00 12/01/21 09:30 Temperature Pulse Rate 94 H 82 92 H Respiratory Rate 24 27 H 26 H Blood Pressure 150/87 143/81 146/94 O2 Sat by Pulse Oximetry 95 97 97 12/01/21 10:00 12/01/21 10:30 12/01/21 11:00 Temperature Pulse Rate 87 90 94 H Respiratory Rate 25 H 23 25 H Blood Pressure 139/90 140/93 155/91 O2 Sat by Pulse Oximetry 96 96 98 12/01/21 11:30 12/01/21 11:36 12/01/21 12:00 Temperature 98.4 F Pulse Rate 94 H 96 H 92 H Respiratory Rate 27 H 25 H 31 H Blood Pressure 170/98 164/97 156/95 O2 Sat by Pulse Oximetry 98 98 96 12/01/21 12:11 12/01/21 12:30 12/01/21 12:48 Temperature Pulse Rate 98 H 93 H Respiratory Rate 30 H 31 H 22 Blood Pressure 157/95 153/91 O2 Sat by Pulse Oximetry 96 96 12/01/21 13:00 12/01/21 13:01 12/01/21 13:18 Temperature Pulse Rate 102 H 99 H Respiratory Rate 36 H 40 H 22 Blood Pressure 162/101 169/92 O2 Sat by Pulse Oximetry 97 97 12/01/21 13:30 12/01/21 14:00 12/01/21 14:31 Temperature Pulse Rate 85 82 74 Respiratory Rate 26 H 39 H 29 H Blood Pressure 169/81 146/82 160/78 O2 Sat by Pulse Oximetry 100 98 99 12/01/21 15:00 12/01/21 16:00 12/01/21 17:00 Temperature 98.2 F Pulse Rate 99 H 75 86 Respiratory Rate 25 H 25 H 30 H Blood Pressure 131/82 152/87 130/76 O2 Sat by Pulse Oximetry 93 L 98 97 Labs: Laboratory Last Values WBC 14.0 X10^3/uL (3.6-10.0) H D 12/01/21 05:23 RBC 2.89 X10^6/uL (4.7-6.0) L 12/01/21 05:23 Hgb 8.5 g/dL (13.5-18.0) L 12/01/21 05:23 Hct 24.8 % (42.0-54.0) L 12/01/21 05:23 MCV 85.8 fL (80.0-100.0) 12/01/21 05:23 MCH 29.3 pg (27.0-34.0) 12/01/21 05:23 MCHC 34.1 g/dL (33.0-35.0) 12/01/21 05:23 RDW 15.4 % (11.6-16.5) 12/01/21 05:23 Plt Count 53 X10^3/uL (150.0-450.0) L 12/01/21 05:23 Plt Count Comment Decreased (ADEQUATE) 11/30/21 04:27 MPV 9.4 fL (7.4-11.0) 12/01/21 05:23 Neut % (Auto) 85.0 % (42.0-75.0) H 12/01/21 05:23 Lymph % (Auto) 7.6 % (21.0-51.0) L 12/01/21 05:23 [place] % (Auto) 7.1 % (0.0-13.0) 12/01/21 05:23 Eos % (Auto) 0.0 % (0.9-2.9) L 12/01/21 05:23 Baso % (Auto) 0.3 % (0.2-1.0) 12/01/21 05:23 Neut # (Auto) 11.9 x10^3/uL (2.2-4.8) H 12/01/21 05:23 Lymph # (Auto) 1.1 X10^3/uL (1.3-2.9) L 12/01/21 05:23 [place] # (Auto) 1.0 x10^3/uL (0.3-0.8) H 12/01/21 05:23 Eos # (Auto) 0.0 x10^3/uL (0.0-0.2) 12/01/21 05:23 Baso # (Auto) 0.0 X10^3/uL (0.0-0.1) 12/01/21 05:23 Absolute Nucleated RBC 0.0 /100WBC 12/01/21 05:23 Total Counted 100 11/30/21 04:27 Neutrophils % (Manual) 84 % (39-76) H 11/30/21 04:27 Band Neutrophils % 7 % (0-10) 11/30/21 04:27 Lymphocytes % (Manual) 7 % (13-43) L 11/30/21 04:27 Monocytes % (Manual) 2 % (4-9) L 11/30/21 04:27 Plt Morphology Comment Normal (NORMAL) 11/30/21 04:27 RBC Morphology Abnormal (NORMAL) 11/30/21 04:27 Target Cells Present 11/30/21 04:27 ESR 24 MM/HOUR (0-15) H 12/01/21 05:35 D-Dimer 2.85 ug/ml (0.0-0.57) H* 12/01/21 05:35 Sodium 138 mmol/L (136-145) 12/01/21 03:14 Corrected Sodium 139 mmol/L (136-145) 12/01/21 03:14 Potassium 2.6 mmol/L (3.5-5.1) L* 12/01/21 03:14 Chloride 103 mmol/L (98-107) 12/01/21 03:14 Carbon Dioxide 27.8 mmol/L (21-32) 12/01/21 03:14 BUN 14 mg/dL (7-18) 12/01/21 03:14 Creatinine 0.60 mg/dL (0.70-1.30) L 12/01/21 03:14 Est GFR (MDRD) Af Amer > 60 (>60) 12/01/21 03:14 Est GFR (MDRD) Non-Af > 60 (>60) 12/01/21 03:14 Glucose 122 mg/dL (65-99) H 12/01/21 03:14 POC Glucose (mg/dL) 102 mg/dL (65-99) H 12/01/21 16:06 Lactic Acid 0.8 mmol/L (0.4-2.0) 11/30/21 04:27 Calcium 7.7 mg/dL (8.5-10.1) L 12/01/21 03:14 Corrected Calcium 10.1 mg/dL (8.5-10.1) 12/01/21 03:14 Phosphorus 3.4 mg/dL (2.6-4.7) 11/30/21 04:27 Magnesium 2.0 mg/dL (1.7-2.9) 11/30/21 04:27 Total Bilirubin 0.40 mg/dL (0.2-1.0) 12/01/21 03:14 AST 22 Units/L (15-37) 12/01/21 03:14 ALT 10 Units/L (12-78) L 12/01/21 03:14 Alkaline Phosphatase 153 Units/L (46-116) H 12/01/21 03:14 Ammonia < 10.0 umol/L (11-32) L 11/29/21 17:51 Troponin I High Sens 88.4 ng/L (4.0-60.0) H* 12/01/21 05:35 C-Reactive Protein 87.90 mg/L (0-3.0) H 12/01/21 05:35 Total Protein 4.9 g/dL (6.4-8.2) L 12/01/21 03:14 Albumin 1.0 g/dL (3.4-5.0) L 12/01/21 03:14 Globulin 3.9 g/dL (2.5-4.5) 12/01/21 03:14 Albumin/Globulin Ratio 0.3 Ratio (1.1-2.1) L 12/01/21 03:14 Prealbumin 5.5 mg/dL (18-35.7) L 12/01/21 03:14 Triglycerides 114 mg/dL (0-150) 11/30/21 04:27 Specimen Type Catherized urine 11/29/21 18:15 Urine Color Yellow (YELLOW) 11/29/21 18:15 Urine Appearance Slightly hazy (CLEAR) 11/29/21 18:15 Urine pH 6.0 (5.0 - 8.0) 11/29/21 18:15 Ur Specific [place] 1.015 (1.000-1.030) 11/29/21 18:15 Urine Protein 2+ (NEGATIVE) 11/29/21 18:15 Urine Glucose (UA) Negative (NEGATIVE) 11/29/21 18:15 Urine Ketones Negative (NEGATIVE) 11/29/21 18:15 Urine Blood 1+ (NEGATIVE) 11/29/21 18:15 Urine Nitrite Negative (NEGATIVE) 11/29/21 18:15 Urine Bilirubin Negative (NEGATIVE) 11/29/21 18:15 Urine Urobilinogen Normal (NORMAL) 11/29/21 18:15 Ur Leukocyte Esterase Negative (NEGATIVE) 11/29/21 18:15 Urine RBC 3-5 /HPF (0-3) A 11/29/21 18:15 Urine WBC 0-2 /HPF (0-5) 11/29/21 18:15 Ur Squamous Epith Cells Few /HPF (NEGATIVE) 11/29/21 18:15 Ur Transition Epith Cell Few /HPF (NEGATIVE) 11/29/21 18:15 Ur Renal Epithelial Cell Few /HPF (NEGATIVE) 11/29/21 18:15 Amorphous Sediment 1+ /HPF (NEGATIVE) 11/29/21 18:15 Urine Bacteria Trace /HPF (NEGATIVE) 11/29/21 18:15 Urine Sperm Few /HPF (NEGATIVE) 11/29/21 18:15 Ur Culture Indicated? No/not indicated 11/29/21 18:15 Stool Description 1oz unformed brn sto 11/30/21 08:20 Stl C. diff Tox B Gene Negative (NEGATIVE) 11/30/21 08:20 Stl C. diff [id number] Presumptive negative (NEGATIVE) 11/30/21 08:20 Urine Opiates Screen Negative (NEG=<300) 11/29/21 18:15 Urine Methadone Screen Negative (NEG=<300) 11/29/21 18:15 Ur Barbiturates Screen Negative (NEG=<200) 11/29/21 18:15 Ur Phencyclidine Scrn Negative (NEG=<25) 11/29/21 18:15 Ur Amphetamines Screen Negative (NEG=<1000) 11/29/21 18:15 U Benzodiazepines Scrn Positive (NEG=<200) 11/29/21 18:15 Urine Cocaine Screen Negative (NEG=<300) 11/29/21 18:15 U Marijuana (THC) Screen Positive (NEG=<50) A 11/29/21 18:15 SARS-CoV-2 (PCR) Negative (NEGATIVE) 11/29/21 19:55 Cryptosporid parvum Ag Negative (NEGATIVE) 11/30/21 08:20 Giardia lamblia Ag Negative (NEGATIVE) 11/30/21 08:20 Reason For Visit: MS CHANGE, HYPOKALEMIA, HYPOMAGNESSEMIA Discharge Date Discharge Date: 12/01/21 Discharge Diagnosis All Active Problems (Updated 11/29/21 @ 21:20 by SHIRLEY CARTER) Abdominal pain, epigastric (Acute) Cholelithiasis (Acute) Acute hypokalemia (Acute) Hypertension, uncontrolled (Acute) Altered mental status (Acute) Acute hypokalemia (Acute) Acute hypotension (Acute) Tachycardia (Acute) Neutrophilic leukocytosis (Acute) Hypomagnesemia (Acute) Rectal cancer (Acute) Plan of Treatment: Continue with present treatment and follow up plan. Pt is to keep follow up appointment as instructed and take medications as ordered. Discharge Medications Discharge Medications: No Known Drug Allergies Allergy (Verified 08/02/19 00:59) CONTINUE taking the following medications alprazolam 1 mg PO BID PRN 12/01/21 [History] gabapentin 300 mg PO BID PRN 12/01/21 [History] ondansetron HCl [Zofran] 8 mg PO TID PRN 12/01/21 [History] oxycodone 15 mg PO Q6H PRN 12/01/21 [History] Discharge Disposition Discharge Disposition: Transfer to [facility] in [place], [place]. Discharge Condition: Stable Discharge Plan Discharge Plan Hospital Course: Pt is a 51 year old male with medical history of colorectal cancer(adenocarcinoma) admitted with altered mental status and neutrophilic leukocytosis. He had been getting Folfox chemotherapy until 2-3 weeks ago and recently had neupogen due to leukopenia. He was kept NPO, started on nutritional supplementation TPN, IVF NS, and antibiotics Zosyn, while awaiting blood culture results. Electrolytes repleting per protocol. This morning on exam patient's mental status appeared to have become worse and he only verbalizes by babbling. Also, on exam brudzinsky test positive with pt also exhibiting nuchal rigidity. High degree suspicion for meningitis given patients history and being immunocompromised. Request urgent transfer to get patient to [facility] for spinal tap, however no beds available and no neurologist organ tuner electronic as well as [facility] in [place]. [facility] in [place] contacted and transfer accepted. To prevent delay of treatment with no provider available for spinal tap, initiated antibiotic treatment protocol for meningitis with Rocephin, Vancomycin, Acyclovir. Pt will be transferred to tertiary facility for higher level of care. Patient Disposition: [facility] Condition: Stable Health Concerns: Post Hospitalization: new medications and changes needed to prevent readmission or further decline. Pt educated and given instructions on all concerns. Plan of Treatment: Continue with present treatment and follow up plan. Pt is to keep follow up appointment as instructed and take medications as ordered. Prescriptions: No Action alprazolam 1 mg Tablet 1 mg PO BID PRNRF: 0 ondansetron HCl [Zofran] 8 mg Tablet 8 mg PO TID PRN (Reason: Nausea) RF: 0 oxycodone 15 mg Tablet 15 mg PO Q6H PRNRF: 0 gabapentin 300 mg Capsule 300 mg PO BID PRN (Reason: pain) RF: 0 Orders to Discharge Patient Discharge Orders: Discharge by Transfer to Outside Facility (Routine); Ordered 12/01/21 Ordered By: Armando Ray Follow ups/Referrals Follow ups/Referrals: Armando Ray [Primary Care Provider] - 3 days
== END 2021-12-01 17:00 | disposition short-term general hospital (02) | DRG 81 ==
LOC: ER 17:05 → ICU 21:35
PROVIDERS: ADMIT Family Medicine; ATTEND Family Medicine
DX: Z20.822 Contact with and (suspected) exposure to COVID-19; C20 Malignant neoplasm of rectum; Z92.21 Personal history of antineoplastic chemotherapy; K21.9 Gastro-esophageal reflux disease without esophagitis; R26.89 Other abnormalities of gait and mobility; R77.8 Other specified abnormalities of plasma proteins; I95.89 Other hypotension; R40.0 Somnolence; E83.42 Hypomagnesemia; F12.90 Cannabis use, unspecified, uncomplicated; R00.0 Tachycardia, unspecified; D72.89 Other specified disorders of white blood cells; R79.82 Elevated C-reactive protein (CRP); E87.6 Hypokalemia

== ENCOUNTER 2022-01-26 17:43 | Inpatient (IN) ==
[2022-01-26] MEDS ORDERED: NS 1,000 ML IV 1,000 ML IV ONE ×2 (18:08→21:12)
--- NOTE | 2022-01-26 18:15 | DR.DIZZY ---
HPI Time seen Time Seen by Provider: 01/26/22 17:53 Complaint Chief Complaint Doctor Comments: 51 y/o male, has been fighting St 3 colon ca, brought in for increasing weakness. Chemotherapy was put on hold few weeks ago, until the pt could regain some weight. Has not had much po intake over the past week. Having increasing weakness. Fell this afternoon. Has had a bed sore recently, may be infected. Possible low grade temps. No report of vomiting, diarrhea. + having some coughing, not productive. Pt refused EMS transport yesterday (was more alert than today). Has swelling of the left lower extremity for a day. Nurses Notes Reviewed Nurses Notes Review: Yes Context Stroke Symptoms: None PMH PMH Past Medical History: GERD and Hypertension Past Medical History Comment: Colon Ca Past Surgical History: Yes (port placed) Surgical History: Other (colostomy) Family History Family Medical History: Cancer Social History Do you use any recreational Drugs:: No ROS Review of Systems Constitutional: Malaise, Weakness and Loss of Appetite Eyes: No Symptoms Reported ENTM: No Symptoms Reported Respiratoy: Non-Productive Cough Cardiovascular: Edema (LLE) Gastrointestinal/Abdominal: No Symptoms Reported Genitourinary: No Symptoms Reported Neurological: Weakness and Dizziness Musculoskeletal: See HPI Integumentary: See HPI Hematologic/Lymphatic: No Symptoms Reported Psychiatric: No Symptoms Reported All Other Systems: Reviewed and Negative PE Vital Signs Vitals: Temperature 98.7 F Pulse Rate 118 Respiratory Rate 30 Blood Pressure [Left Arm] 100/70 Blood Pressure 90/61 O2 Sat by Pulse Oximetry 93 General General Appearance: In Distress (+ tachypneic, tachycardic) and Cachectic Eyes Eye exam: Normal Appearance, PERRL and EOMI Neck Neck Exam: Normal Inspection; negative Tenderness Chest Chest Inspection: Symmetric Chest Wall Rise; negative Tenderness Respiratory Respiratory Exam: Normal Lung Sounds Bilat, Accessory Muscle Use and Respiratory Distress Cardiovascular Cardiovascular Exam: Regular Rate, Normal Rhythm, Tachycardia and Normal Heart Sounds Abdominal Exam Abdominal Exam: Normal Bowel Sounds and Soft; negative Tenderness (+ colostomy) Extremeties Extremities Exam: Edema (of LLE, no erythema, tenderness.) Back Back Exam: Other (+ deep sacral decubitus, 2 x 3 cms, at least stage 3, with mild surrounding erythema. ) Psychiatric Psychiatric Exam: Normal Affect Skin Skin Exam: Warm and Dry MDM Differential Diagnosis Differential Diagnosis: Dehydration, Electrolyte disorder and Other (sepsis, DVT/PE, infected sacral decubitus.) COURSE Treatment Treatment: 51 y/o male with colon ca, not doing well at all. + very cachectic, clinically dehydrated. Now with swollen LLE x 2 days. W/u initiated. Given IV fluids. CXR obtained - no obvious pneumonia/abnormalities. Very tachycardic on arrival, with low BP. + improving with IV fluids. + deep sacral decubitus, will treat with IV antibiotics, in case of infection (given IV Zosyn/vancomycin in the ER). LLE swollen - highly concerning fro DVT. Has been falling, will do Doppler, as well as x-rays to r/o underlying fracture. Pt given SC lovenox in ER (only 40 mgs, weighs 39KG). Not a good candidate for CTA of chest, would like to hydrate him up more. Pt in very poor health, + failure to thrive, st 3 colon ca, chemo on hold. Discussed with pt as to end of life wishes. Specifically, if pt were to code in the ER/hospital, he wishes not to be resuscitated. Agree with the pt on this account, as it appears to be medically futile to attempt resuscitation for this pt. Discussed with his attending, Dr Ray, accepts the admission. ROR Labs Reviewed Result Diagrams: 01/26/22 18:25 01/26/22 18:25 Laboratory: WBC 20.4 X10^3/uL (3.6-10.0) H 01/26/22 18: RBC 3.05 X10^6/uL (4.7-6.0) L 01/26/22 18:25 Hgb 8.0 g/dL (13.5-18.0) L 01/26/22 18:25 Hct 25.3 % (42.0-54.0) L 01/26/22 18:25 MCV 82.7 fL (80.0-100.0) 01/26/22 18: MCH 26.1 pg (27.0-34.0) L 01/26/22 18:25 MCHC 31.5 g/dL (33.0-35.0) L 01/26/22 18:25 RDW 20.1 % (11.6-16.5) H 01/26/22 18:25 Plt Count 183 X10^3/uL (150.0-450.0) 01/26/22 18: Plt Count Comment Adequate (ADEQUATE) 01/26/22 18: MPV 8.8 fL (7.4-11.0) 01/26/22 18: Neut % (Auto) 89.2 % (42.0-75.0) H 01/26/22 18: Lymph % (Auto) 4.8 % (21.0-51.0) L 01/26/22 18:25 [place] % (Auto) 5.8 % (0.0-13.0) 01/26/22 18: Eos % (Auto) 0.0 % (0.9-2.9) L 01/26/22: Baso % (Auto) 0.2 % (0.2-1.0) 01/26/22 18: Neut # (Auto) 18.2 x10^3/uL (2.2-4.8) H 01/26/22 18: Lymph # (Auto) 1.0 X10^3/uL (1.3-2.9) L 01/26/22 18:25 [place] # (Auto) 1.2 x10^3/uL (0.3-0.8) H 01/26/22 18: Eos # (Auto) 0.0 x10^3/uL (0.0-0.2) 01/26/22 18: Baso # (Auto) 0.0 X10^3/uL (0.0-0.1) 01/26/22 18: Absolute Nucleated RBC 0.0 /100WBC 01/26/22 18: Plt Morphology Comment Normal (NORMAL) 01/26/22 18: RBC Morphology Abnormal (NORMAL) 01/26/22 18: Anisocytosis 1+ A 01/26/22 18: Sample Site Lb 01/26/22 18:07 ABG pH 7.390 (7.35-7.45) 01/26/22 18:07 ABG pCO2 33.0 mmHg (35.0-45.0) L 01/26/22 18:07 ABG pO2 62.0 mmHg (80.0-100.0) L 01/26/22 18:07 ABG HCO3 20.0 mmol/L (22-26) L 01/26/22 18:07 ABG O2 Saturation 91.0 % (90-100) 01/26/22 18:07 ABG Base Excess -4.2 mmol/L (-2.0-2.0) L 01/26/22 18:07 Cristopher Test Na 01/26/22 18:07 A-a Gradient 610.0 mmHg 01/26/22 18:07 FiO2 100.0 01/26/22 18:07 Blood Gas Comments Pt debby [email or web address] 01/26/22 18:07 Sodium 135 mmol/L (136-145) L 01/26/22 18:25 Corrected Sodium 135 mmol/L (136-145) L 01/26/22 18:25 Potassium 3.8 mmol/L (3.5-5.1) 01/26/22 18:25 Chloride 97 mmol/L (98-107) L 01/26/22 18:25 Carbon Dioxide 21.9 mmol/L (21-32) 01/26/22 18:25 BUN 24 mg/dL (7-18) H 01/26/22 18:25 Creatinine 1.35 mg/dL (0.70-1.30) H 01/26/22 18:25 Est GFR (MDRD) Af Amer > 60 (>60) 01/26/22 18:25 Est GFR (MDRD) Non-Af 60 (>60) 01/26/22 18:25 Glucose 111 mg/dL (65-99) H 01/26/22 18:25 Lactic Acid 9.4 mmol/L (0.4-2.0) H 01/26/22 18:25 Calcium 8.3 mg/dL (8.5-10.1) L 01/26/22 18:25 Corrected Calcium 10.3 mg/dL (8.5-10.1) H 01/26/22 18:25 Total Bilirubin 0.50 mg/dL (0.2-1.0) 01/26/22 18:25 AST 11 Units/L (15-37) L 01/26/22 18:25 ALT < 6 Units/L (12-78) L 01/26/22 18:25 Alkaline Phosphatase 187 Units/L (46-116) H 01/26/22 18:25 Creatine Kinase 12 Units/L (39-308) L 01/26/22 18:25 CK-MB (CK-2) < 1.0 ng/mL (0-4.0) 01/26/22 18:25 CK/CKMB % Calc 8.3 % (<4) 01/26/22 18:25 Troponin I High Sens 6.2 ng/L (4.0-60.0) 01/26/22 18:25 Total Protein 6.2 g/dL (6.4-8.2) L 01/26/22 18:25 Albumin 1.5 g/dL (3.4-5.0) L 01/26/22 18:25 Globulin 4.7 g/dL (2.5-4.5) H 01/26/22 18:25 Albumin/Globulin Ratio 0.3 Ratio (1.1-2.1) L 01/26/22 18:25 Lipase 13 Units/L (73-393) L 01/26/22 18:25 SARS-CoV-2 (PCR) Negative (NEGATIVE) 01/26/22 18:45 Influenza Type A (PCR) Negative (NEGATIVE) 01/26/22 18:45 Influenza Type B (PCR) Negative (NEGATIVE) 01/26/22 18:45 RSV (PCR) Negative (NEGATIVE) 01/26/22 18:45 WBC 20K, Hgb 8.0 pO2 62. Opioid Opioid Risk Tool Age (Michael box if 16-45): No History of Preadolescent Sexual Abuse: No Total: 0 Total Score Risk Category: Low Risk Copyright: Tolu CAO predicting aberrant behaviors Discharge Plan Diagnosis Discharge Problem: Adult failure to thrive, Dehydration, Colon cancer, Sacral decubitus ulcer, stage III Discharge Plan Patient Disposition: 01 HOME, SELF-CARE Condition: Stable Prescriptions: No Action alprazolam 1 mg Tablet 1 mg PO BID PRN ondansetron HCl [Zofran] 8 mg Tablet 8 mg PO TID PRN (Reason: Nausea) oxycodone 15 mg Tablet 15 mg PO Q6H PRN gabapentin 300 mg Capsule 300 mg PO BID PRN (Reason: pain) Orders to Discharge Patient Discharge Orders: Transfer (Routine); Ordered 01/26/22 Ordered By: Christophe Holcomb
[2022-01-26 18:27] LABS: ABG BASE EXCESS -4.2 mmol/L (-2.0-2.0)
[2022-01-26] MEDS ORDERED: NS 1,000 ML IV 1,000 ML ONE ×2 (18:31→21:11)
--- NOTE | 2022-01-26 18:36 | RAD ---
HISTORYHX OF OLON CANCER, DEHYDRATED Relevant Clinical InformationSTUDYCHEST, 1 VIEWCOMPARISONMay 2021FINDINGSThe trachea is midline. The cardiac silhouette is unremarkable. Background changes of chronic bronchitis/COPD are suggested. There is a stable left-sided CVL whose tip overlies the SVC. No pneumothorax is seen. The lungs are clear without focal infiltrate or effusion. The bony thorax is unremarkable.IMPRESSIONNo acute cardiopulmonary abnormalities seen. Chronic lung changes remain.Electronically signed by: KELLY TINEO III (Jan 26, 2022 18:35:16)
[2022-01-26 18:57] LABS: BASOPHILS % (AUTO) 0.2 % (0.2-1.0); HEMATOCRIT 25.3 % (42.0-54.0); LYMPHOCYTES % (AUTO) 4.8 % (21.0-51.0); MEAN CORPUSCULAR HEMOGLOBIN 26.1 pg (27.0-34.0); MEAN CORPUSCULAR HGB CONC 31.5 g/dL (33.0-35.0); MEAN CORPUSCULAR VOLUME 82.7 fL (80.0-100.0); MEAN PLATELET VOLUME 8.8 fL (7.4-11.0); MONOCYTES # (AUTO) 1.2 x10^3/uL (0.3-0.8); MONOCYTES % (AUTO) 5.8 % (0.0-13.0); NEUTROPHILS # (AUTO) 18.2 x10^3/uL (2.2-4.8); NEUTROPHILS % (AUTO) 89.2 % (42.0-75.0); RED BLOOD COUNT 3.05 X10^6/uL (4.7-6.0); RED CELL DISTRIBUTION WIDTH 20.1 % (11.6-16.5); WHITE BLOOD COUNT 20.4 X10^3/uL (3.6-10.0)
[2022-01-26 19:12] LABS: ANISOCYTOSIS 1+; PLATELET MORPHOLOGY COMMENT NORMAL (NORMAL)
[2022-01-26 19:13] LABS: LACTIC ACID 9.4 mmol/L (0.4-2.0)
[2022-01-26 19:16] LABS: ALANINE AMINOTRANSFERASE < 6 Units/L (12-78); ALBUMIN 1.5 g/dL (3.4-5.0); ALKALINE PHOSPHATASE 187 Units/L (46-116); ASPARTATE AMINO TRANSFERASE 11 Units/L (15-37); BLOOD UREA NITROGEN 24 mg/dL (7-18); CALCIUM 8.3 mg/dL (8.5-10.1); CARBON DIOXIDE 21.9 mmol/L (21-32); CHLORIDE 97 mmol/L (98-107); COR CA(FOR HYPOALB) 10.3 mg/dL (8.5-10.1); COR NA(FOR HYPERGLY) 135 mmol/L (136-145); CREATINE KINASE 12 Units/L (39-308); CREATININE 1.35 mg/dL (0.70-1.30); LIPASE 13 Units/L (73-393); SODIUM 135 mmol/L (136-145); TOTAL PROTEIN 6.2 g/dL (6.4-8.2); eGFR NON BLACK RACES 60 (>60)
[2022-01-26] MEDS ORDERED: ZOSYN VIAL 3.375 GRAMS 3.375 G in NS 100 ML IV 100 ML IV ONE (19:23)
[2022-01-26] MEDS ORDERED: VANCOMYCIN IV *PREMIX 1 G/200 ML BAG 1 G/200 ML PIGGYBACK IV ONE ×2 (19:25→20:49)
[2022-01-26] MEDS ORDERED: LOVENOX INJ 40 MG SYR SC ONE ×2 (19:27→19:30)
[2022-01-26] MEDS ORDERED: ZOSYN VIAL 3.375 GRAMS IV ONE (19:30)
[2022-01-26] MEDS ORDERED: NS 100 ML IV 100 ML ONE (19:31)
--- NOTE | 2022-01-26 21:02 | VAS ---
HISTORYSWELLING LLE X'S 1 DAY, HX OF COLON CANCERSTUDYLOWER EXT VENOUS, UNILATERALCOMPARISONNone.TECHNIQUEMultip le hensley scale and color flow Doppler images of the deep venous system were obtained of the left lower extremity.FINDINGSThe deep venous system of the left lower extremity was evaluated from the level of the common femoral vein through the popliteal vein. There is echogenic heterogeneous thrombus within the left common femoral vein extending contiguously to the left popliteal vein and left posterior tibialis vein. No color flow is seen within the vessel. The vessel is noncompressible throughout its course..IMPRESSIONExtensive deep venous thrombosis throughout the left lower extremity as described above.Electronically signed by: Linda Degroot (Jan 26, 2022 21:00:54)
[2022-01-26] MEDS ORDERED: PHARMACY CONSULT - VANCOMYCIN XX SCH (23:44)
[2022-01-26] MEDS ORDERED: ZOFRAN INJ 4 MG VIAL IVP PRN (23:44)
[2022-01-27] MEDS: ZOSYN VIAL 3.375 GRAMS 3.375 G in NS 100 ML IV 100 ML IV SCH ×3 (05:55→21:51)
[2022-01-27] MEDS: MORPHINE SULFATE INJ 2 MG INJ IVP PRN (06:15)
[2022-01-27 06:43] LABS: BILIRUBIN,URINE NEGATIVE (NEGATIVE); BLOOD/HEMOGLOBIN,URINE NEGATIVE (NEGATIVE); GLUCOSE, URINE NEGATIVE (NEGATIVE); KETONES,URINE 1+ (NEGATIVE); LEUKOCYTE ESTERASE ,URINE 1+ (NEGATIVE); NITRITES,URINE NEGATIVE (NEGATIVE); PROTEIN,URINE 2+ (NEGATIVE); UROBILINOGEN,URINE NORMAL (NORMAL)
[2022-01-27] MEDS: NS 1,000 ML IV 1,000 ML IV SCH ×4 (06:49→17:53)
[2022-01-27 07:20] LABS: APPEARANCE,URINE SLIGHTLY HAZY (CLEAR); BACTERIA,URINE TRACE /HPF (NEGATIVE); COLOR,URINE YELLOW (YELLOW); HYALINE CASTS, URINE MODERATE /LPF (NEGATIVE); RBC,URINE 0-2 /HPF (0-3); SQUAMOUS EPITHELIAL CELL,UR FEW /HPF (NEGATIVE)
[2022-01-27 07:46] LABS: BASOPHILS # (AUTO) 0.1 X10^3/uL (0.0-0.1); BASOPHILS % (AUTO) 0.4 % (0.2-1.0); HEMATOCRIT 23.7 % (42.0-54.0); HEMOGLOBIN 7.5 g/dL (13.5-18.0); LYMPHOCYTES # (AUTO) 1.2 X10^3/uL (1.3-2.9); MEAN CORPUSCULAR HEMOGLOBIN 25.9 pg (27.0-34.0); MEAN CORPUSCULAR HGB CONC 31.6 g/dL (33.0-35.0); MEAN CORPUSCULAR VOLUME 81.9 fL (80.0-100.0); MEAN PLATELET VOLUME 8.9 fL (7.4-11.0); MONOCYTES # (AUTO) 0.9 x10^3/uL (0.3-0.8); MONOCYTES % (AUTO) 3.6 % (0.0-13.0); NEUTROPHILS # (AUTO) 21.9 x10^3/uL (2.2-4.8); RED BLOOD COUNT 2.89 X10^6/uL (4.7-6.0); RED CELL DISTRIBUTION WIDTH 19.5 % (11.6-16.5); WHITE BLOOD COUNT 24.1 X10^3/uL (3.6-10.0)
[2022-01-27] MEDS ORDERED: VANCOMYCIN IV *PREMIX 500 mg/100 ML BAG 500 MG/100 ML PIGGYBACK IV SCH ×2 (08:00→20:00)
[2022-01-27 08:01] LABS: ALANINE AMINOTRANSFERASE 9 Units/L (12-78); ALBUMIN 1.3 g/dL (3.4-5.0); ALKALINE PHOSPHATASE 155 Units/L (46-116); ASPARTATE AMINO TRANSFERASE 13 Units/L (15-37); BLOOD UREA NITROGEN 29 mg/dL (7-18); CALCIUM 7.5 mg/dL (8.5-10.1); CARBON DIOXIDE 24.4 mmol/L (21-32); CHLORIDE 104 mmol/L (98-107); COR CA(FOR HYPOALB) 9.7 mg/dL (8.5-10.1); CREATININE 1.24 mg/dL (0.70-1.30); SODIUM 140 mmol/L (136-145); TOTAL PROTEIN 5.5 g/dL (6.4-8.2); eGFR NON BLACK RACES > 60 (>60)
[2022-01-27 08:16] LABS: BAND NEUTROPHILS % 9 % (0-10); PLATELET MORPHOLOGY COMMENT NORMAL (NORMAL)
[2022-01-27 08:17] LABS: ANISOCYTOSIS SLIGHT; BURR CELLS SLIGHT; HYPOCHROMASIA SLIGHT
[2022-01-27] MEDS: VANCOMYCIN IV *PREMIX 750 mg/150 ML BAG 750 MG/150 ML PIGGYBACK IV SCH ×2 (09:31→21:07)
[2022-01-27] MEDS: LOVENOX INJ 40 MG SYR SC SCH ×2 (09:31→21:07)
[2022-01-27] MEDS: XANAX PO SCH ×3 (09:32→20:56)
--- NOTE | 2022-01-27 11:37 | CT ---
CT angiogram chest with contrastIndication: Dyspnea. Possible pulmonary embolus. History of colon cancera centrilobular distribution are seen in left lobe and right lower lobe.COMPARISONUltrasound from the previous day showing extensive DVT. July 20, 2021 CTTECHNIQUEHelical images through the chest after IV contrast. Coronal sagittal reformats provided.FINDINGSLimited images through the upper abdomen show extreme muscle wasting and atrophy when compared to the prior. No unexpected abnormality otherwise, within limits of field of view and bolus timing.Review of bone windows demonstrate mild spine DJD and Schmorl's nodes without new destructive osseous lesion identified.Chest: There is eventrationof the left hemidiaphragm with distended stomach noted. Carotid bulb calcifications noted in the neck. Aortic arch calcifications are noted. Few coronary calcifications seen. Heart size is normal. Left-sided subclavian Port-A-Cath tip is over the SVC.Pulmonary artery bolus timing is adequate with extensive right pulmonary embolus noted, tracking in the right lower lobe vessels on axial image 87 and involving right middle lobe vessels on axial image 92. Left lower lobe thrombus seen on axial image 90 with dense opacification left lower lobe. Pneumonia versus pulmonary infarct possible. Follow-up to resolution to exclude underlying lesion. Patchy ground-glass opacities and tree-in-bud opacities are seen throughout the right lower lobe, left lower lobe and left upper lobe. Right upper lobe is relatively spared.IMPRESSION1. Bilateral pulmonary embolic filling defects, particularly in the right lower lobe.2. Patchy bilateral pulmonary ground-glass opacities, somewhat bronchovascular distribution, with few tree-in-bud opacities and nodules noted. Dense consolidation left lower lobe.3. The left lower lobe opacity could reflect a pulmonary infarct given involvement of PET, but pneumonia might appear similarly. Follow-up to resolution4. The patchy pulmonary opacities could reflect superimposed atypical infection. Pulmonology evaluation recommended.5. Left hemidiaphragm is elevated. There is extensive cachexia.Electronically signed by: RAFAEL POE (Jan 27, 2022 11:36:07)
[2022-01-27] MEDS ORDERED: CLINIMIX 5 %/20 % 1,000 ML with MVI INJ (ADULT) 10 ML, TPN ELECTROLYTES 20 ML IV SCH ×3 (14:00)
[2022-01-27] MEDS ORDERED: PHARMACY CONSULT - TPN XX SCH (14:00)
--- NOTE | 2022-01-27 14:00 | DR.H&P ---
H&P History & Physical for Day of: H&P Date: 01/27/22 Chief Complaint Chief Complaint: Generalized weakness Loss of appetite, confusion Shortness of breath Allergies Allergies Allergy/AdvReac Type Severity Reaction Status Date / Time No Known Drug Allergies Allergy Verified 08/02/19 00:59 History of Present Illness History of Present Illness: Pt is a 51 year old male with history of Stage 3 Colon cancer presenting with progressively worsening weakness for the past month, with loss of appetite resulting in significant weight loss. Over the past week he has had very little po intake. He has also not been mobile for the past few weeks due to his strength, and has developed bed sores. He has had swelling in his left lower extremity for the past two days and is now having dyspnea. Denies fevers, chills, chest pain, abdominal pain, vomiting, diarrhea. His chemo had been stopped before his previous admission to the hospital that resulted in colostomy bag. Labs/imaging: Wbc 24, Hgb 7.5, Plt 178, Na 140, K 3.3, Creatinine 1.24, Glucose 95, LA 9.4>2.9, UA negative, Flu/RSV/COVID-19 negative, ABG: pH 7.39, pCO2 33, pO2 62, HCO3 20, O2sat 91% on FiO2 100%. Blood/Wound cultures pending. CXR was obtained that revealed: No acute cardiopulmonary abnormalities seen. Chronic lung changes remain. Venous duplex revealed: thrombus within the left common femoral vein extending contiguously to the left popliteal vein and left posterior tibialis vein. Pt is severely cachectic on exam. He has lost a significant amount of weight since I have last seen him. Appears that oncology is also aware of this and he has been on megace to try and stimulate appetite. We will start on full dose lovenox for thrombus and consult vascular surgery for evaluation, including wound care for sacrum. Leukocytosis and acidosis on labs, will start on antibiotics: IV vancomycin and Zosyn for empiric treatment. Will also start on IV thiamine and TPN nutrition, monitor electrolytes closely as patient is at risk for refeeding syndrome. Order CTA chest to evaluate for pulmonary embolism, pt is currently on a non-rebreather. Concern for patient prognosis giving failure to thrive situation. Will continue to closely monitor and follow up labs/imaging. Time spent on clinical assessment, reviewing labs and imaging, decision making, and documentation greater than 45 minutes. Past Medical History Past Medical History: GERD and Hypertension Past Surgical History Surgical History: Bowel Resection Family History Family Medical History: Cancer Social History Does patient currently use any type of tobacco product: Yes Have you used tobacco products in the last 12 months: Yes Type of Tobacco Use: Cigarettes Does any household member use tobacco: No Alcohol Use: DAILY Drug Use: Marijuana Medications Home Medications: No Known Drug Allergies Allergy (Verified 08/02/19 00:59) Labs Result Diagrams: 01/27/22 07:32 01/27/22 07:32 Labs: 01/26/22 18:25 Blood Blood Culture - Preliminary 01/27/22 00:05 Sacral Wound Gram Stain - Final Laboratory WBC 24.1 X10^3/uL (3.6-10.0) H 01/27/22 07:32 RBC 2.89 X10^6/uL (4.7-6.0) L 01/27/22 07:32 Hgb 7.5 g/dL (13.5-18.0) L 01/27/22 07:32 Hct 23.7 % (42.0-54.0) L 01/27/22 07:32 MCV 81.9 fL (80.0-100.0) 01/27/22 07:32 MCH 25.9 pg (27.0-34.0) L 01/27/22 07:32 MCHC 31.6 g/dL (33.0-35.0) L 01/27/22 07:32 RDW 19.5 % (11.6-16.5) H 01/27/22 07:32 Plt Count 178 X10^3/uL (150.0-450.0) 01/27/22 07:32 Plt Count Comment Adequate (ADEQUATE) 01/27/22 07:32 MPV 8.9 fL (7.4-11.0) 01/27/22 07:32 Neut % (Auto) 91.0 % (42.0-75.0) H 01/27/22 07:32 Lymph % (Auto) 5.0 % (21.0-51.0) L 01/27/22 07:32 [place] % (Auto) 3.6 % (0.0-13.0) 01/27/22 07:32 Eos % (Auto) 0.0 % (0.9-2.9) L 01/27/22 07:32 Baso % (Auto) 0.4 % (0.2-1.0) 01/27/22 07:32 Neut # (Auto) 21.9 x10^3/uL (2.2-4.8) H 01/27/22 07:32 Lymph # (Auto) 1.2 X10^3/uL (1.3-2.9) L 01/27/22 07:32 [place] # (Auto) 0.9 x10^3/uL (0.3-0.8) H 01/27/22 07:32 Eos # (Auto) 0.0 x10^3/uL (0.0-0.2) 01/27/22 07:32 Baso # (Auto) 0.1 X10^3/uL (0.0-0.1) 01/27/22 07:32 Absolute Nucleated RBC 0.1 /100WBC 01/27/22 07:32 Total Counted 100 01/27/22 07:32 Neutrophils % (Manual) 84 % (39-76) H 01/27/22 07:32 Band Neutrophils % 9 % (0-10) 01/27/22 07:32 Lymphocytes % (Manual) 7 % (13-43) L 01/27/22 07:32 Plt Morphology Comment Normal (NORMAL) 01/27/22 07:32 RBC Morphology Abnormal (NORMAL) 01/27/22 07:32 Hypochromasia Slight A 01/27/22 07:32 Anisocytosis Slight A 01/27/22 07:32 Colten Cells Slight A 01/27/22 07:32 Sample Site Lb 01/26/22 18:07 ABG pH 7.390 (7.35-7.45) 01/26/22 18:07 ABG pCO2 33.0 mmHg (35.0-45.0) L 01/26/22 18:07 ABG pO2 62.0 mmHg (80.0-100.0) L 01/26/22 18:07 ABG HCO3 20.0 mmol/L (22-26) L 01/26/22 18:07 ABG O2 Saturation 91.0 % (90-100) 01/26/22 18:07 ABG Base Excess -4.2 mmol/L (-2.0-2.0) L 01/26/22 18:07 Cristopher Test Na 01/26/22 18:07 A-a Gradient 610.0 mmHg 01/26/22 18:07 FiO2 100.0 01/26/22 18:07 Blood Gas Comments Pt debby [email or web address] 01/26/22 18:07 Sodium 140 mmol/L (136-145) 01/27/22 07:32 Corrected Sodium TNP 01/27/22 07:32 Potassium 3.3 mmol/L (3.5-5.1) L 01/27/22 07:32 Chloride 104 mmol/L (98-107) 01/27/22 07:32 Carbon Dioxide 24.4 mmol/L (21-32) 01/27/22 07:32 BUN 29 mg/dL (7-18) H 01/27/22 07:32 Creatinine 1.24 mg/dL (0.70-1.30) 01/27/22 07:32 Est GFR (MDRD) Af Amer > 60 (>60) 01/27/22 07:32 Est GFR (MDRD) Non-Af > 60 (>60) 01/27/22 07:32 Glucose 95 mg/dL (65-99) 01/27/22 07:32 Lactic Acid 2.9 mmol/L (0.4-2.0) H 01/26/22 22:23 Calcium 7.5 mg/dL (8.5-10.1) L 01/27/22 07:32 Corrected Calcium 9.7 mg/dL (8.5-10.1) 01/27/22 07:32 Total Bilirubin 0.60 mg/dL (0.2-1.0) 01/27/22 07:32 AST 13 Units/L (15-37) L 01/27/22 07:32 ALT 9 Units/L (12-78) L 01/27/22 07:32 Alkaline Phosphatase 155 Units/L (46-116) H 01/27/22 07:32 Creatine Kinase 12 Units/L (39-308) L 01/26/22 18:25 CK-MB (CK-2) < 1.0 ng/mL (0-4.0) 01/26/22 18:25 CK/CKMB % Calc 8.3 % (<4) 01/26/22 18:25 Troponin I High Sens 6.2 ng/L (4.0-60.0) 01/26/22 18:25 Total Protein 5.5 g/dL (6.4-8.2) L 01/27/22 07:32 Albumin 1.3 g/dL (3.4-5.0) L 01/27/22 07:32 Globulin 4.2 g/dL (2.5-4.5) 01/27/22 07:32 Albumin/Globulin Ratio 0.3 Ratio (1.1-2.1) L 01/27/22 07:32 Lipase 13 Units/L (73-393) L 01/26/22 18:25 Specimen Type Catherized urine 01/27/22 06:32 Urine Color Yellow (YELLOW) 01/27/22 06:32 Urine Appearance Slightly hazy (CLEAR) 01/27/22 06:32 Urine pH 5.0 (5.0 - 8.0) 01/27/22 06:32 Ur Specific [place] 1.020 (1.000-1.030) 01/27/22 06:32 Urine Protein 2+ (NEGATIVE) 01/27/22 06:32 Urine Glucose (UA) Negative (NEGATIVE) 01/27/22 06:32 Urine Ketones 1+ (NEGATIVE) 01/27/22 06:32 Urine Blood Negative (NEGATIVE) 01/27/22 06:32 Urine Nitrite Negative (NEGATIVE) 01/27/22 06:32 Urine Bilirubin Negative (NEGATIVE) 01/27/22 06:32 Urine Urobilinogen Normal (NORMAL) 01/27/22 06:32 Ur Leukocyte Esterase 1+ (NEGATIVE) 01/27/22 06:32 Urine RBC 0-2 /HPF (0-3) 01/27/22 06:32 Urine WBC 0-2 /HPF (0-5) 01/27/22 06:32 Ur Squamous Epith Cells Few /HPF (NEGATIVE) 01/27/22 06:32 Amorphous Sediment Trace /HPF (NEGATIVE) 01/27/22 06:32 Urine Bacteria Trace /HPF (NEGATIVE) 01/27/22 06:32 Hyaline Casts Moderate /LPF (NEGATIVE) 01/27/22 06:32 Ur Culture Indicated? No/not indicated 01/27/22 06:32 SARS-CoV-2 (PCR) Negative (NEGATIVE) 01/26/22 18:45 Influenza Type A (PCR) Negative (NEGATIVE) 01/26/22 18:45 Influenza Type B (PCR) Negative (NEGATIVE) 01/26/22 18:45 RSV (PCR) Negative (NEGATIVE) 01/26/22 18:45 Review of Systems Constitutional: Weakness Eyes: No Symptoms Reported ENT: No Symptoms Reported Respiratory: Cough and Shortness of Breath Cardiovascular: No Symptoms Reported Gastrointestinal: No Symptoms Reported Genitourinary: No Symptoms Reported Musculoskeletal: No Symptoms Reported Skin: No Symptoms Reported Neurological: Other (loss of appetite ) Physical Exam Vital Signs: Temperature 97.9 F Pulse Rate 137 Respiratory Rate 24 Blood Pressure [Left Arm] 100/70 Blood Pressure 116/77 O2 Sat by Pulse Oximetry 94 Oriented: Normal Eyes: Normal Ear: Normal Nose: Normal Throat: Normal Respiratory: Diminished Throughout Cardiovascular: Tachycardia : Normal Auscultation: Bowel Sounds: Normal Palpation: Normal Tenderness: Normal Skin: Decreased Turgur and Wound (sacrum) Musculoskeletal: Normal Mood Description: Calm Speech Pattern: Clear and Appropriate Assessment/Plan (1) Adult failure to thrive: Status: Acute (2) Deep vein thrombosis (DVT) of left lower extremity: Status: Acute (3) Lactic acidosis: Status: Acute (4) Sacral decubitus ulcer, stage III: Status: Acute (5) Dehydration: Status: Acute (6) Electrolyte abnormality: Status: Acute (7) Anorexia: Status: Acute (8) Colon cancer: Status: Acute Review H&P Reviewed: Yes Patient was examined?: Yes
[2022-01-27] MEDS: THIAMINE HCL INJ IVP SCH ×2 (14:02→21:07)
[2022-01-27 20:22] VITALS: BMI 13.3
[2022-01-28] MEDS: ZOSYN VIAL 3.375 GRAMS 3.375 G in NS 100 ML IV 100 ML IV SCH ×3 (05:00→21:17)
[2022-01-28 05:21] LABS: BASOPHILS % (AUTO) 0.1 % (0.2-1.0); LYMPHOCYTES # (AUTO) 1.2 X10^3/uL (1.3-2.9); LYMPHOCYTES % (AUTO) 4.7 % (21.0-51.0); MEAN CORPUSCULAR HEMOGLOBIN 26.4 pg (27.0-34.0); MEAN CORPUSCULAR HGB CONC 32.7 g/dL (33.0-35.0); MEAN CORPUSCULAR VOLUME 80.9 fL (80.0-100.0); MEAN PLATELET VOLUME 8.9 fL (7.4-11.0); MONOCYTES # (AUTO) 1.2 x10^3/uL (0.3-0.8); MONOCYTES % (AUTO) 4.4 % (0.0-13.0); NEUTROPHILS # (AUTO) 24.2 x10^3/uL (2.2-4.8); NEUTROPHILS % (AUTO) 90.8 % (42.0-75.0); RED BLOOD COUNT 2.38 X10^6/uL (4.7-6.0); RED CELL DISTRIBUTION WIDTH 19.7 % (11.6-16.5); WHITE BLOOD COUNT 26.6 X10^3/uL (3.6-10.0)
[2022-01-28 05:23] LABS: ALANINE AMINOTRANSFERASE 10 Units/L (12-78); ALBUMIN 1.2 g/dL (3.4-5.0); ALKALINE PHOSPHATASE 126 Units/L (46-116); ASPARTATE AMINO TRANSFERASE 16 Units/L (15-37); BLOOD UREA NITROGEN 34 mg/dL (7-18); CALCIUM 7.7 mg/dL (8.5-10.1); CARBON DIOXIDE 22.3 mmol/L (21-32); CHLORIDE 110 mmol/L (98-107); COR CA(FOR HYPOALB) 9.9 mg/dL (8.5-10.1); COR NA(FOR HYPERGLY) 144 mmol/L (136-145); CREATININE 1.27 mg/dL (0.70-1.30); SODIUM 144 mmol/L (136-145); TOTAL PROTEIN 5.4 g/dL (6.4-8.2); eGFR NON BLACK RACES > 60 (>60)
[2022-01-28 05:30] LABS: HEMATOCRIT 19.2 % (42.0-54.0); HEMOGLOBIN 6.3 g/dL (13.5-18.0)
[2022-01-28] MEDS ORDERED: POTASSIUM CHLORIDE LIQ 20 MEQ UDC PO PRN (05:39)
[2022-01-28] MEDS ORDERED: K-RIDER 10 MEQ/NS 100 ML 10 MEQ/100 ML BAG IV PRN (05:39)
[2022-01-28] MEDS ORDERED: POTASSIUM CHL 60 MEQ/NS 0.45% 500 ML IV PRN (05:39)
[2022-01-28] MEDS ORDERED: KLOR-CON PO PRN (05:39)
[2022-01-28] MEDS ORDERED: K-DUR TAB 20 MEQ PO PRN (05:39)
[2022-01-28] MEDS ORDERED: MICRO K EXTEN CAP 10 MEQ PO PRN (05:39)
[2022-01-28] MEDS: NS 1,000 ML IV 1,000 ML IV SCH ×4 (05:59→15:15)
[2022-01-28 06:07] LABS: ANISOCYTOSIS SLIGHT; BAND NEUTROPHILS % 4 % (0-10); HYPOCHROMASIA SLIGHT; PLATELET MORPHOLOGY COMMENT NORMAL (NORMAL); TARGET CELLS PRESENT
[2022-01-28] MEDS ORDERED: HEPARIN SODIUM IN D5W 50,000 UNITS/1,000 ML BAG ONE (07:02)
[2022-01-28] MEDS ORDERED: ACTIVASE CATHFLO ONE (07:03)
[2022-01-28] MEDS ORDERED: NS 500 ML IV 1,000 ML IV ONE (07:03)
[2022-01-28] MEDS ORDERED: VERSED ONE (07:05)
[2022-01-28] MEDS ORDERED: DIPRIVAN VIAL 20 ML ONE (07:05)
[2022-01-28] MEDS ORDERED: FENTANYL VIAL INJ 100 mcg ONE (07:05)
[2022-01-28] MEDS ORDERED: NS 1,000 ML IV 1,000 ML ONE ×2 (07:15→07:25)
[2022-01-28] MEDS ORDERED: MARCAINE 0.5% ONE (07:18)
[2022-01-28] MEDS ORDERED: HEPARIN SODIUM IN D5W 75,000 UNITS/1,500 ML BAG ONE (07:18)
[2022-01-28] MEDS ORDERED: HEPARIN SODIUM IN D5W 25,000 UNITS/500 ML BAG ONE (07:25)
[2022-01-28] MEDS: ACTIVASE CATHFLO 12 MG in NS 250 ML IV 228 ML INTRACATH SCH ×11 (07:30→20:04)
[2022-01-28] MEDS ORDERED: NS 500 ML IV 500 ML IV ONE ×2 (07:36→08:34)
--- NOTE | 2022-01-28 08:03 | DR.CONSULT ---
CONSULT Consultation for Day of: Date: 01/27/22 Chief Complaint Chief Complaint: 51 year old male with stage 3 rectal cancer complicated by perforation in the abdomen while receiving chemotherapy requiring emergency colostomy and treatment for sepsis. Patient now with bilateral pulmonary emboli worse on the right and extensive deep venous thrombosis of the left lower extremity involving the common femoral vein popliteal vein and posterior tibial vein . Allergies Allergies Allergy/AdvReac Type Severity Reaction Status Date / Time No Known Drug Allergies Allergy Verified 08/02/19 00:59 History of Present Illness History of Present Illness: as above Past Medical History Past Medical History: GERD and Hypertension Past Surgical History Surgical History: Bowel Resection Family History Family Medical History: Cancer Social History Does patient currently use any type of tobacco product: Yes Have you used tobacco products in the last 12 months: Yes Type of Tobacco Use: Cigarettes Does any household member use tobacco: No Alcohol Use: DAILY Drug Use: Marijuana Medications Home Medications: No Known Drug Allergies Allergy (Verified 08/02/19 00:59) Review of Systems Constitutional: See HPI (cachectic) Eyes: No Symptoms Reported ENT: No Symptoms Reported Respiratory: Shortness of Breath Cardiovascular: No Symptoms Reported Gastrointestinal: No Symptoms Reported Genitourinary: No Symptoms Reported Musculoskeletal: No Symptoms Reported Skin: Other (5 cm sacral decubitus ) Physical Exam Vital Signs: Temperature 98.7 F Pulse Rate 111 Respiratory Rate 18 Blood Pressure [Left Arm] 100/70 Blood Pressure 122/76 O2 Sat by Pulse Oximetry 100 Oriented: Person (only) Eyes: Normal Ear: Normal Nose: Normal Throat: Normal Respiratory: Rales Throughout Cardiovascular: Normal : Normal Auscultation: Bowel Sounds: Normal Palpation: Normal (LLQ colostomy) Tenderness: Normal Skin: Wound (sacral decubitus) Musculoskeletal: Normal (but thin) Mood Description: Apathetic Affect: Flat Plan (1) Adult failure to thrive: Status: Acute (2) Deep vein thrombosis (DVT) of left lower extremity: Status: Acute Narrative Support Text: Will place thrombolytic catheters for TPA of bilateral pulmonary emboli and of the left leg DVT. (3) Lactic acidosis: Status: Acute (4) Sacral decubitus ulcer, stage III: Status: Acute Plan: debride in OR (5) Dehydration: Status: Acute (6) Electrolyte abnormality: Status: Acute (7) Anorexia: Status: Acute (8) Colon cancer: Status: Acute (9) Pulmonary embolism: Status: Acute Plan: see above
[2022-01-28] MEDS ORDERED: KETAMINE HCL ONE (08:06)
--- NOTE | 2022-01-28 08:06 | RAD ---
HISTORYCentral line placementSTUDYChest AP [id number]/12/2022 chest x-ray, CTA chest 01/27/2022FINDINGSThere is a new right IJ line with its tip in the expected position of the superior vena cava. There is a left-sided port present with its tip in the expected position of the superior vena cava. Heart size is normal. Celia are normal. Lungs are well inflated. Right lung and left upper lung eaton are clear. Diffuse alveolar infiltrate is present in the left lower lobe new when compared to the prior chest x-ray examination but unchanged from the CTA chest 01/27/2022. This could represent pneumonia or infarction. Follow-up until complete resolution is recommended. No pleural effusions are identified. Bony thorax is unremarkable.IMPRESSIONRight IJ line in good positionNo change left lower lobe infiltrate when compared with the CTA chest 01/27/2022Electronically signed by: FALGUNI HENRIQUEZ (Jan 28, 2022 08:05:51)
[2022-01-28] MEDS ORDERED: PHARMACY COMMENT IV ONE (08:30)
[2022-01-28] MEDS ORDERED: HEPARIN SODIUM INJ 5000 UNITS ONE (08:36)
[2022-01-28] MEDS ORDERED: XYLOCAINE 2 % (PLAIN) ONE (09:19)
--- NOTE | 2022-01-28 10:02 | OR.IMMED ---
IMMEDIATE POST-OP NOTE Immediate Post-Op Note Pre-Op Diagnosis: b/l PE, DVT entire left leg Post-Op Diagnosis: as above , clot in right femoral vein as well Procedure: place thrombolytic catheters in left popliteal and femoral veins, right and left pulmonary artery Surgeon/Cherry Sorter: Darell Findings: Left leg DVT, right leg DVT, b/l PE Estimated Blood Loss: 20 cc Complications: none Progress Notes: Return to ICU for thrombolysis of all involved veins. Final Diagnosis: as above
[2022-01-28] MEDS: THIAMINE HCL INJ IVP SCH ×2 (10:36→20:50)
[2022-01-28] MEDS: XANAX PO SCH ×2 (10:37→20:09)
[2022-01-28] MEDS: LOVENOX INJ 40 MG SYR SC SCH ×2 (10:37→20:03)
[2022-01-28] MEDS: MAGNESIUM SULFATE 1 GRAM/100 mL PREMIX 1 G/100 ML BAG IV PRN ×2 (11:03→16:19)
[2022-01-28 11:40] LABS: CREATININE 1.08 mg/dL (0.70-1.30)
[2022-01-28] MEDS: POTASSIUM CHL 40 MEQ/NS 0.45% 500 ML IV PRN (11:42)
[2022-01-28 11:58] LABS: VANCOMYCIN,TROUGH 21.9 ug/mL (15-20)
[2022-01-28] MEDS: VANCOMYCIN IV *PREMIX 750 mg/150 ML BAG 750 MG/150 ML PIGGYBACK IV SCH ×2 (11:59→20:50)
--- NOTE | 2022-01-28 12:17 | PCM.PROG ---
Progress Note Progress Note for Day of Date of Exam: 01/28/22 Subjective Subjective: Pt is a 51 year old male with history of Stage 3 Colon cancer admitted for bilateral pulmonary embolism, DVT LLE, Adult failure to thrive, Electrolyte abnormalities, Sacral decubitus ulcer. Today, pt resting in bed, he is still somewhat sedated after having procedure this morning. Labs/imaging: Wbc 26, Hgb 6.3, Plt 154, Na 144, K 2.8, Creatinine 1.27, Glucose 114, Blood/Wound cultures pending. CTA chest was obtained that revealed: 1. Bilateral pulmonary embolic filling defects, particularly in the right lower lobe. 2. Patchy bilateral pulmonary ground-glass opacities, somewhat bronchovascular distribution, with few tree-in-bud opacities and nodules noted. Dense consolidation left lower lobe. 3. The left lower lobe opacity could reflect a pulmonary infarct given involvement of PET, but pneumonia might appear similarly. Follow-up to resolution. 4. The patchy pulmonary opacities could reflect superimposed atypical infection. Pulmonology evaluation recommended. 5. Left hemidiaphragm is elevated. There is extensive cachexia. Echo: EF 53%, CXR: Right IJ line in good position. No change left lower lobe infiltrate when compared with the CTA chest 01/27/2022. Vascular surgery-Dr Lozoya was consulted, pt this morning underwent procedure and now has thrombolytic catheters for TPA of bilateral pulmonary emboli and of the left leg DVT. Plan is to continue treatment through the weekend. He also had central line placed. Continue wound care for sacral ulcer. Continue antibiotics: IV vancomycin and Zosyn, will add Levaquin. Continue IV thiamine and TPN nutrition, monitor electrolytes closely as patient is at risk for refeeding syndrome. He is anemic, one unit packed red blood cells was transfused, will trend hemoglobin. Concern for patient prognosis giving failure to thrive situation. Will continue to closely monitor and follow up labs/imaging. Critical time spent on clinical assessment, reviewing labs and imaging, decision making, and documentation greater than 75 minutes. Past Medical Family Social History Allergies: Allergies No Known Drug Allergies Allergy (Verified 08/02/19 00:59) Review of Systems ROS: No change since H&P Vital Signs and I&O's Vital Signs: Temperature 98.7 F Pulse Rate 108 Respiratory Rate 30 Blood Pressure [Left Arm] 100/70 Blood Pressure 142/81 O2 Sat by Pulse Oximetry 100 Intake and Output: Intake & Output 01/25/22 01/26/22 01/27/22 01/28/22 23:59 23:59 23:59 23:59 Intake Total 3579 / 3579 1581 / 1581 Output Total 655 / 655 570 / 570 Balance 2924 / 2924 1011 / 1011 Physical Exam Oriented: Person (only) Eyes: Normal Ear: Normal Nose: Normal Throat: Normal Respiratory: Diminished Cardiovascular: Normal : Normal Auscultation: Bowel Sounds: Normal Tenderness: Normal Skin: Wound (sacral decubitus) Musculoskeletal: Normal (but thin) Mood Description: Apathetic Affect: Flat Speech Pattern: Unclear and Delayed Laboratory and Diagnostics Result Diagrams: 01/28/22 04:30 01/28/22 10:47 Labs: 01/26/22 18:25 Blood Blood Culture - Preliminary 01/27/22 00:05 Sacral Wound Gram Stain - Final 01/27/22 00:05 Sacral Wound Culture - Preliminary Laboratory WBC 26.6 X10^3/uL (3.6-10.0) H 01/28/22 04:30 RBC 2.38 X10^6/uL (4.7-6.0) L 01/28/22 04:30 Hgb 6.3 g/dL (13.5-18.0) L* 01/28/22 04:30 Hct 19.2 % (42.0-54.0) L* 01/28/22 04:30 MCV 80.9 fL (80.0-100.0) 01/28/22 04:30 MCH 26.4 pg (27.0-34.0) L 01/28/22 04:30 MCHC 32.7 g/dL (33.0-35.0) L 01/28/22 04:30 RDW 19.7 % (11.6-16.5) H 01/28/22 04:30 Plt Count 154 X10^3/uL (150.0-450.0) 01/28/22 04:30 Plt Count Comment Adequate (ADEQUATE) 01/28/22 04:30 MPV 8.9 fL (7.4-11.0) 01/28/22 04:30 Neut % (Auto) 90.8 % (42.0-75.0) H 01/28/22 04:30 Lymph % (Auto) 4.7 % (21.0-51.0) L 01/28/22 04:30 [place] % (Auto) 4.4 % (0.0-13.0) 01/28/22 04:30 Eos % (Auto) 0.0 % (0.9-2.9) L 01/28/22 04:30 Baso % (Auto) 0.1 % (0.2-1.0) L 01/28/22 04:30 Neut # (Auto) 24.2 x10^3/uL (2.2-4.8) H 01/28/22 04:30 Lymph # (Auto) 1.2 X10^3/uL (1.3-2.9) L 01/28/22 04:30 [place] # (Auto) 1.2 x10^3/uL (0.3-0.8) H 01/28/22 04:30 Eos # (Auto) 0.0 x10^3/uL (0.0-0.2) 01/28/22 04:30 Baso # (Auto) 0.0 X10^3/uL (0.0-0.1) 01/28/22 04:30 Absolute Nucleated RBC 0.0 /100WBC 01/28/22 04:30 Total Counted 100 01/28/22 04:30 Neutrophils % (Manual) 86 % (39-76) H 01/28/22 04:30 Band Neutrophils % 4 % (0-10) 01/28/22 04:30 Lymphocytes % (Manual) 7 % (13-43) L 01/28/22 04:30 Monocytes % (Manual) 3 % (4-9) L 01/28/22 04:30 Plt Morphology Comment Normal (NORMAL) 01/28/22 04:30 RBC Morphology Abnormal (NORMAL) 01/28/22 04:30 Hypochromasia Slight A 01/28/22 04:30 Anisocytosis Slight A 01/28/22 04:30 Target Cells Present 01/28/22 04:30 [place] Cells Slight A 01/27/22 07:32 Sample Site Lb 01/26/22 18:07 ABG pH 7.390 (7.35-7.45) 01/26/22 18:07 ABG pCO2 33.0 mmHg (35.0-45.0) L 01/26/22 18:07 ABG pO2 62.0 mmHg (80.0-100.0) L 01/26/22 18:07 ABG HCO3 20.0 mmol/L (22-26) L 01/26/22 18:07 ABG O2 Saturation 91.0 % (90-100) 01/26/22 18:07 ABG Base Excess -4.2 mmol/L (-2.0-2.0) L 01/26/22 18:07 Cristopher Test Na 01/26/22 18:07 A-a Gradient 610.0 mmHg 01/26/22 18:07 FiO2 100.0 01/26/22 18:07 Blood Gas Comments Pt debby [email or web address] 01/26/22 18:07 Sodium 144 mmol/L (136-145) 01/28/22 04:30 Corrected Sodium 144 mmol/L (136-145) 01/28/22 04:30 Potassium 2.8 mmol/L (3.5-5.1) L* 01/28/22 04:30 Chloride 110 mmol/L (98-107) H 01/28/22 04:30 Carbon Dioxide 22.3 mmol/L (21-32) 01/28/22 04:30 BUN 34 mg/dL (7-18) H 01/28/22 04:30 Creatinine 1.08 mg/dL (0.70-1.30) 01/28/22 10:47 Est GFR (MDRD) Af Amer > 60 (>60) 01/28/22 04:30 Est GFR (MDRD) Non-Af > 60 (>60) 01/28/22 04:30 Glucose 114 mg/dL (65-99) H 01/28/22 04:30 Lactic Acid 2.9 mmol/L (0.4-2.0) H 01/26/22 22:23 Calcium 7.7 mg/dL (8.5-10.1) L 01/28/22 04:30 Corrected Calcium 9.9 mg/dL (8.5-10.1) 01/28/22 04:30 Magnesium 1.6 mg/dL (1.7-2.9) L 01/28/22 04:30 Total Bilirubin 0.40 mg/dL (0.2-1.0) 01/28/22 04:30 AST 16 Units/L (15-37) 01/28/22 04:30 ALT 10 Units/L (12-78) L 01/28/22 04:30 Alkaline Phosphatase 126 Units/L (46-116) H 01/28/22 04:30 Creatine Kinase 12 Units/L (39-308) L 01/26/22 18:25 CK-MB (CK-2) < 1.0 ng/mL (0-4.0) 01/26/22 18:25 CK/CKMB % Calc 8.3 % (<4) 01/26/22 18:25 Troponin I High Sens 6.2 ng/L (4.0-60.0) 01/26/22 18:25 Total Protein 5.4 g/dL (6.4-8.2) L 01/28/22 04:30 Albumin 1.2 g/dL (3.4-5.0) L 01/28/22 04:30 Globulin 4.2 g/dL (2.5-4.5) 01/28/22 04:30 Albumin/Globulin Ratio 0.3 Ratio (1.1-2.1) L 01/28/22 04:30 Lipase 13 Units/L (73-393) L 01/26/22 18:25 Specimen Type Catherized urine 01/27/22 06:32 Urine Color Yellow (YELLOW) 01/27/22 06:32 Urine Appearance Slightly hazy (CLEAR) 01/27/22 06:32 Urine pH 5.0 (5.0 - 8.0) 01/27/22 06:32 Ur Specific [place] 1.020 (1.000-1.030) 01/27/22 06:32 Urine Protein 2+ (NEGATIVE) 01/27/22 06:32 Urine Glucose (UA) Negative (NEGATIVE) 01/27/22 06:32 Urine Ketones 1+ (NEGATIVE) 01/27/22 06:32 Urine Blood Negative (NEGATIVE) 01/27/22 06:32 Urine Nitrite Negative (NEGATIVE) 01/27/22 06:32 Urine Bilirubin Negative (NEGATIVE) 01/27/22 06:32 Urine Urobilinogen Normal (NORMAL) 01/27/22 06:32 Ur Leukocyte Esterase 1+ (NEGATIVE) 01/27/22 06:32 Urine RBC 0-2 /HPF (0-3) 01/27/22 06:32 Urine WBC 0-2 /HPF (0-5) 01/27/22 06:32 Ur Squamous Epith Cells Few /HPF (NEGATIVE) 01/27/22 06:32 Amorphous Sediment Trace /HPF (NEGATIVE) 01/27/22 06:32 Urine Bacteria Trace /HPF (NEGATIVE) 01/27/22 06:32 Hyaline Casts Moderate /LPF (NEGATIVE) 01/27/22 06:32 Ur Culture Indicated? No/not indicated 01/27/22 06:32 Vancomycin Trough 21.9 ug/mL (15-20) H* 01/28/22 10:47 SARS-CoV-2 (PCR) Negative (NEGATIVE) 01/26/22 18:45 Influenza Type A (PCR) Negative (NEGATIVE) 01/26/22 18:45 Influenza Type B (PCR) Negative (NEGATIVE) 01/26/22 18:45 RSV (PCR) Negative (NEGATIVE) 01/26/22 18:45 Blood Type O POSITIVE 01/28/22 07:06 Antibody Screen Negative 01/28/22 07:06 Crossmatch See Detail 01/28/22 07:06 Plan (1) Adult failure to thrive: Status: Acute (2) Pulmonary embolism: Status: Acute (3) Deep vein thrombosis (DVT) of left lower extremity: Status: Acute (4) Lactic acidosis: Status: Acute (5) Sacral decubitus ulcer, stage III: Status: Acute (6) Dehydration: Status: Acute (7) Electrolyte abnormality: Status: Acute (8) Anorexia: Status: Acute (9) Colon cancer: Status: Acute
[2022-01-28] MEDS ORDERED: NS 1,000 ML IV 1,000 ML IV ONE ×2 (12:21→14:17)
[2022-01-28] MEDS ORDERED: ACTIVASE CATHFLO 12 MG in NS 250 ML IV 228 ML INTRACATH ONE ×4 (12:22)
--- NOTE | 2022-01-28 12:30 | DR.UPDATE ---
H&P Update History and Physical Update: History and Physical reviewed and patient examined. Changes noted: NO Yes with the following:will place central line per Dr Lozoya H&P Reviewed: Yes Patient was examined?: Yes Procedures (ALL) - Central Line Placement PCM.CLCO: written consent Time out performed: Yes Patient placed pm monitor/pulse ox: Yes prep: mask, gown, gloves, other Centrial line prep: chlorhexidine scrub, sterile drapes applied Local anesthsia used: lidocane 1% Ultrasound used for placement: Yes (cannulation of right IJ visualized with ultrasound) Central line lumen ininserted: triple Post procedure: sutured in place, good blood return, all ports aspirated, flushed,capped, sterile dressing applied Post procedure xray: tip oc catheter in good position Patient tolerated procedure: Yes Complications: none
[2022-01-28 12:53] LABS: BASOPHILS % (AUTO) 0.1 % (0.2-1.0); HEMATOCRIT 21.5 % (42.0-54.0); HEMOGLOBIN 7.2 g/dL (13.5-18.0); LYMPHOCYTES # (AUTO) 0.5 X10^3/uL (1.3-2.9); LYMPHOCYTES % (AUTO) 3.2 % (21.0-51.0); MEAN CORPUSCULAR HEMOGLOBIN 27.9 pg (27.0-34.0); MEAN CORPUSCULAR HGB CONC 33.5 g/dL (33.0-35.0); MEAN CORPUSCULAR VOLUME 83.3 fL (80.0-100.0); MEAN PLATELET VOLUME 8.5 fL (7.4-11.0); MONOCYTES # (AUTO) 0.1 x10^3/uL (0.3-0.8); MONOCYTES % (AUTO) 0.4 % (0.0-13.0); NEUTROPHILS # (AUTO) 16.3 x10^3/uL (2.2-4.8); NEUTROPHILS % (AUTO) 96.3 % (42.0-75.0); RED BLOOD COUNT 2.58 X10^6/uL (4.7-6.0); RED CELL DISTRIBUTION WIDTH 17.7 % (11.6-16.5)
[2022-01-28 13:19] LABS: WHITE BLOOD COUNT 16.9 X10^3/uL (3.6-10.0)
[2022-01-28 13:30] LABS: ANISOCYTOSIS SLIGHT; PLATELET MORPHOLOGY COMMENT NORMAL (NORMAL)
[2022-01-28 13:31] LABS: BAND NEUTROPHILS % 8 % (0-10); TARGET CELLS SLIGHT
--- NOTE | 2022-01-28 13:32 | DR.OPNOTE ---
OP NOTE Pre-Op Diagnosis: DVT left PT vein, popliteal vein, femoral vein, and submassive b/l PE Post-Op Diagnosis: same, clot also seen in right femoral vein previously undiagnosed Procedure Date Date Of Procedure: 01/28/22 Procedure: PROCEDURE : PLACE EKOS THROMBOLYTIC CATHETERS IN LEFT POPLITEAL/ FEMORAL VEIN, PLACE EKOS THROMBOLYTIC CATHETERS IN RIGHT AND LEFT PULMONARY ARTERY, PLAN TPA THOMBOLYSIS 24-48 HOURS. VENOCAVA GRAM. NARRATIVE : Patient taken to the operative suite and placed in the Supine position. He was given intravenous sedation supervised by myself. The entire left leg, left groin and right groin prepped and draped in sterile fashion. Time out for the procedure obtained . Ultrasound used to attempt visualization of the posterior tibial vein at the left ankle which was not successful because it had clot in it and the patient had significant edema. Attempt was made to puncture the left posterior tibial vein unsuccessfully as a guide wire could not be passed. Ultrasound used to identify the non compressible left popliteal vein and the skin overlying it infiltrated with 0.5% Marcaine . Ultrasound used to guide puncture of the left popliteal vein without difficulty. Incision made over the guide wire and Micro sheath placed over the guide wire into the left femoral vein vein. The small wire exchanged for a 0. 035 inch Advantage glidewire which was taken all the way to the left iliac vein. A Bullock catheter placed over the guide wire . Contrast injected through the Bullock catheter identifying the left patent iliac vein and patent inferior vena cava . Micro sheath exchanged for a 5 Fr vascular sheath . The catheter placed over the guide wire , guide wire removed and the inner core of the EKOS catheter placed and secured. Through the drug port the patient was given 2 mg of IV TPA . We started coolant a 35 cc/ hr and TPA at 1 mg/ hour and heparin at 100 units per hour. Ultrasound used to identify the right common femoral vein and the skin overlying it infiltrated with 0. 5% Marcaine . Ultrasound used to guide puncture of the right common femoral vein and in the superficial vein there was clot noted in it and it was non- compressible . I placed a 0.012 inch wire and incised over the the guide wire at the skin edge with a number 11 knife blade and a micro sheath placed over the guide wire into the right femoral vein. Small wire exchanged for a 0. 035 inch Advantage guide wire and the Micro sheath exchanged for a 5 Fr vascular sheath . Using ultrasound to identify the femoral vein a little bit higher and infiltrated the skin with 0.5% Marcaine and used ultrasound to guide puncture of the same right femoral vein and a 0. 012 inch guide wire placed. Incision made over the guide wire at the skin edge with the number 11 knife blade and then a micro sheath placed over the guide wire into the right femoral vein. The small wire exchanged for a 0. 035 inch Advantage glide wire and then the micro sheath exchange for a 5 Fr vascular sheath . Using fluoroscopy we visualized the guide wires into the heart and used a balloon catheter inflating it ,allowing left heart catheterization , removing the balloon catheter and placing the EKOS sheath over the wire, removing the wire and replacing it with the core catheter into the left pulmonary artery. Identical procedure carried out of the right pulmonary artery. Both of these catheters were bolused with 2 mg of IV TPA. Both were hooked up to coolant at 35cc/ hr each, TPA 1 mg per hour and heparin at 100 units per hour. Dressing applied to all of the catheters, to the right groin and the left popliteal fossa . Patient was taken back to the ICU in good condition. Type of Anesthesia: Local (0.5% MArcaine) Anesthesia Comment: plus MAC Findings: bilateral sub- massive pulmonary embolus, extensive left leg DVT Specimen/Pathology: none Type of Fluids Used:: Lactated Ringers Total Amount of Fluid Infused:: 500 cc Urine output: 225 cc EBL: 20 cc Complications:: none Needle/Sponge Count:: correct Disposition/Condition: Pt. tolerated procedure without difficulty. Taken to CCU in stable condition.
[2022-01-28] MEDS: NS 500 ML IV 500 ML IV SCH ×5 (13:41→21:16)
[2022-01-28] MEDS: [UNRECOGNIZED DRUG - OTHER] IV SCH ×5 (13:51)
[2022-01-28] MEDS: CLINIMIX IV SCH ×5 (13:51)
[2022-01-28] MEDS: MVI IV SCH ×5 (13:51)
[2022-01-28] MEDS: TPN ELECTROLYTES IV SCH ×5 (13:51)
[2022-01-28] MEDS: LEVAQUIN PREMIX IV 250 MG 250 MG/50 ML BAG IV SCH (13:54)
[2022-01-28] MEDS: MORPHINE SULFATE INJ 2 MG INJ IVP PRN ×2 (16:19→20:51)
[2022-01-28 18:40] LABS: BASOPHILS % (AUTO) 0.1 % (0.2-1.0); HEMATOCRIT 25.6 % (42.0-54.0); HEMOGLOBIN 8.5 g/dL (13.5-18.0); LYMPHOCYTES # (AUTO) 0.6 X10^3/uL (1.3-2.9); LYMPHOCYTES % (AUTO) 2.1 % (21.0-51.0); MEAN CORPUSCULAR HGB CONC 33.4 g/dL (33.0-35.0); MEAN CORPUSCULAR VOLUME 83.9 fL (80.0-100.0); MEAN PLATELET VOLUME 8.5 fL (7.4-11.0); MONOCYTES # (AUTO) 0.5 x10^3/uL (0.3-0.8); MONOCYTES % (AUTO) 1.8 % (0.0-13.0); NEUTROPHILS # (AUTO) 29.2 x10^3/uL (2.2-4.8); RED BLOOD COUNT 3.05 X10^6/uL (4.7-6.0); RED CELL DISTRIBUTION WIDTH 16.4 % (11.6-16.5)
[2022-01-28 18:58] LABS: WHITE BLOOD COUNT 30.4 X10^3/uL (3.6-10.0)
[2022-01-28 19:02] LABS: PLATELET MORPHOLOGY COMMENT NORMAL (NORMAL)
[2022-01-29] MEDS ORDERED: DOPAMINE IV PREMIX 400 MG/250 ML 400 MG/250 ML BAG IV PRN (01:00)
[2022-01-29] MEDS ORDERED: NS 1,000 ML IV 1,000 ML IV ONE (01:00)
[2022-01-29] MEDS ORDERED: DOPAMINE IV PREMIX 400 MG/250 ML 400 MG/250 ML BAG IV ONE (01:04)
[2022-01-29] MEDS ORDERED: NS 1,000 ML IV 1,000 ML ONE (01:04)
[2022-01-29] MEDS: NS 1,000 ML IV 1,000 ML IV SCH ×2 (01:26→10:27)
[2022-01-29 02:04] LABS: LYMPHOCYTES # (AUTO) 0.9 X10^3/uL (1.3-2.9); MONOCYTES # (AUTO) 0.6 x10^3/uL (0.3-0.8); MONOCYTES % (AUTO) 2.6 % (0.0-13.0); RED BLOOD COUNT 1.58 X10^6/uL (4.7-6.0)
[2022-01-29 02:15] LABS: BASOPHILS % (AUTO) 0 % (0.2-1.0); EOSINOPHILS % (AUTO) 0.1 % (0.9-2.9); LYMPHOCYTES % (AUTO) 3.7 % (21.0-51.0); MEAN CORPUSCULAR HEMOGLOBIN 27.6 pg (27.0-34.0); MEAN CORPUSCULAR HGB CONC 32.8 g/dL (33.0-35.0); MEAN CORPUSCULAR VOLUME 84.2 fL (80.0-100.0); MEAN PLATELET VOLUME 9.3 fL (7.4-11.0); NEUTROPHILS # (AUTO) 22.2 x10^3/uL (2.2-4.8); NEUTROPHILS % (AUTO) 93.6 % (42.0-75.0); RED CELL DISTRIBUTION WIDTH 16.6 % (11.6-16.5); WHITE BLOOD COUNT 23.7 X10^3/uL (3.6-10.0)
[2022-01-29 02:23] LABS: HEMATOCRIT 13.3 % (42.0-54.0); HEMOGLOBIN 4.3 g/dL (13.5-18.0)
[2022-01-29 02:50] LABS: BAND NEUTROPHILS % 1 % (0-10); PLATELET MORPHOLOGY COMMENT NORMAL (NORMAL)
[2022-01-29 02:51] LABS: ANISOCYTOSIS SLIGHT; HYPOCHROMASIA 1+; TARGET CELLS PRESENT
[2022-01-29] MEDS ORDERED: NS 100 ML IV 100 ML ONE (03:31)
[2022-01-29] MEDS: NS 500 ML IV 500 ML IV SCH ×3 (03:51→13:02)
[2022-01-29] MEDS: ZOSYN VIAL 3.375 GRAMS 3.375 G in NS 100 ML IV 100 ML IV SCH ×3 (05:32→21:32)
--- NOTE | 2022-01-29 06:58 | RAD ---
HISTORYDehydrationSTUDYChest AP [id number] e is a port present on the left. There is a right IJ line in good position. Heart size is normal. Right lung is clear as is the left lung apex. Increasing density is present in the lower half of the left hemithorax likely due to increasing left lower lobe infiltrate. Accompanying volume loss and pleural effusion not excluded. Bony thorax is unremarkable.IMPRESSIONIncreasing density in the lower half of the left hemithorax likely due to increasing left lower lobe infiltrate. An associated pleural effusion and some associated volume loss not excluded.Electronically signed by: FALGUNI HENRIQUEZ (Jan 29, 2022 06:57:19)
[2022-01-29 07:06] LABS: BASOPHILS # (AUTO) 0.1 X10^3/uL (0.0-0.1); BASOPHILS % (AUTO) 0.2 % (0.2-1.0); HEMATOCRIT 20.1 % (42.0-54.0); LYMPHOCYTES # (AUTO) 1.2 X10^3/uL (1.3-2.9); LYMPHOCYTES % (AUTO) 4.9 % (21.0-51.0); MEAN CORPUSCULAR HEMOGLOBIN 29.4 pg (27.0-34.0); MEAN CORPUSCULAR HGB CONC 34.2 g/dL (33.0-35.0); MEAN PLATELET VOLUME 9.7 fL (7.4-11.0); MONOCYTES # (AUTO) 0.9 x10^3/uL (0.3-0.8); MONOCYTES % (AUTO) 3.7 % (0.0-13.0); NEUTROPHILS # (AUTO) 21.7 x10^3/uL (2.2-4.8); NEUTROPHILS % (AUTO) 91.2 % (42.0-75.0); RED BLOOD COUNT 2.34 X10^6/uL (4.7-6.0); WHITE BLOOD COUNT 23.8 X10^3/uL (3.6-10.0)
[2022-01-29 07:18] LABS: HEMOGLOBIN 6.9 g/dL (13.5-18.0)
[2022-01-29 07:38] LABS: ALANINE AMINOTRANSFERASE 8 Units/L (12-78); ALBUMIN 0.8 g/dL (3.4-5.0); ALKALINE PHOSPHATASE 74 Units/L (46-116); ASPARTATE AMINO TRANSFERASE 16 Units/L (15-37); BLOOD UREA NITROGEN 28 mg/dL (7-18); CALCIUM 6.9 mg/dL (8.5-10.1); CARBON DIOXIDE 20.4 mmol/L (21-32); COR CA(FOR HYPOALB) 9.5 mg/dL (8.5-10.1); CREATININE 0.71 mg/dL (0.70-1.30); MAGNESIUM 1.9 mg/dL (1.7-2.9); PHOSPHORUS 2.8 mg/dL (2.6-4.7); TOTAL PROTEIN 3.5 g/dL (6.4-8.2); eGFR NON BLACK RACES > 60 (>60)
[2022-01-29 07:51] LABS: BAND NEUTROPHILS % 10 % (0-10)
[2022-01-29 07:52] LABS: PLATELET MORPHOLOGY COMMENT NORMAL (NORMAL); SMUDGE CELLS PRESENT
[2022-01-29 07:54] LABS: COR NA(FOR HYPERGLY) 153 mmol/L (136-145)
[2022-01-29 07:58] LABS: SODIUM 152 mmol/L (136-145)
[2022-01-29 07:59] LABS: CHLORIDE 124 mmol/L (98-107)
[2022-01-29] MEDS: ACTIVASE CATHFLO 12 MG in NS 250 ML IV 228 ML INTRACATH SCH ×6 (09:37→20:25)
[2022-01-29] MEDS: POTASSIUM CHL 40 MEQ/NS 0.45% 500 ML IV PRN (09:38)
[2022-01-29] MEDS ORDERED: NS 1/2 1,000 ML IV 1,000 ML IV ONE (10:23)
[2022-01-29] MEDS: LEVAQUIN PREMIX IV 250 MG 250 MG/50 ML BAG IV SCH (10:28)
[2022-01-29] MEDS: LOVENOX INJ 40 MG SYR SC SCH ×2 (10:28→21:30)
[2022-01-29] MEDS: THIAMINE HCL INJ IVP SCH ×2 (10:28→21:31)
[2022-01-29] MEDS: PROTONIX INJ 40 MG VIAL IVP SCH ×2 (10:28→21:30)
[2022-01-29] MEDS: XANAX PO SCH ×3 (10:29→22:30)
[2022-01-29] MEDS ORDERED: NS 1/2 1,000 ML IV 1,000 ML IV SCH (11:00)
[2022-01-29] MEDS: VANCOMYCIN IV *PREMIX 500 mg/100 ML BAG 500 MG/100 ML PIGGYBACK IV SCH ×2 (11:04→21:31)
--- NOTE | 2022-01-29 11:33 | PCM.PROG ---
Progress Note Progress Note for Day of Date of Exam: 01/29/22 Subjective Subjective: Pt is a 51 year old male with history of Stage 3 Colon cancer admitted for bilateral pulmonary embolism, DVT LLE, Pneumonia, Adult failure to thrive, Electrolyte abnormalities, Sacral decubitus ulcer, Anemia and thrombocytopenia. Today, pt resting in bed, yesterday he became hypotensive and had to be placed on vasopressor Levophed gtt. He is currently requiring non- rebreather for oxygen support. Labs/imaging: Wbc 23, Hgb 6.9, Plt 36, Na 153, K 3.1, Creatinine 0.71, Glucose 152, Blood culture pending, Wound cultures positive for pseudomonas aeruginosa and e. coli. CXR was obtained that revealed: Increasing density in the lower half of the left hemithorax likely due to increasing left lower lobe infiltrate. An associated pleural effusion and some associated volume loss not excluded. Echo: EF 53%, Vascular surgery-Dr Lozoya following, pt has thrombolytic catheters for TPA of bilateral pulmonary emboli and of the left leg DVT. Removal of pulmonary catheters today. Plan is to continue treatment through the weekend. Continue wound care for sacral ulcer and antibiotics: IV vancomycin and Zosyn, Levaquin. Continue IV thiamine and TPN nutrition, monitor electrolytes closely as patient is at risk for refeeding syndrome. He is anemic, total of three units packed red blood cells have been transfused, trend hemoglobin. Change IVF to 1/2 NS for due to hypernatremia, add IV protonix 40mg BID. Concern for patient prognosis giving failure to thrive situation. Wean/titrate vasopressor and oxygen as tolerated. Will continue to closely monitor and follow up labs/imaging. Critical time spent on clinical assessment, reviewing labs and imaging, decision making, and documentation greater than 75 minutes. Past Medical Family Social History Allergies: Allergies No Known Drug Allergies Allergy (Verified 08/02/19 00:59) Review of Systems ROS: No change since H&P Vital Signs and I&O's Vital Signs: Temperature 98.4 F Pulse Rate 122 Respiratory Rate 26 Blood Pressure [Left Arm] 100/70 Blood Pressure 116/82 O2 Sat by Pulse Oximetry 95 Intake and Output: Intake & Output 01/26/22 01/27/22 01/28/22 01/29/22 23:59 23:59 23:59 23:59 Intake Total 3579 / 3579 7598 / 7651 3150.0 / 3150.0 Output Total 655 / 655 1405 / 1465 630 / 630 Balance 2924 / 2924 6193 / 6186 2520.0 / 2520.0 Physical Exam Oriented: Person (only) Eyes: Normal Ear: Normal Nose: Normal Throat: Normal Respiratory: Diminished Cardiovascular: Normal : Normal Auscultation: Bowel Sounds: Normal Tenderness: Normal Skin: Wound (sacral decubitus) Musculoskeletal: Normal (but thin) Mood Description: Apathetic Affect: Flat Speech Pattern: Unclear and Delayed Laboratory and Diagnostics Result Diagrams: 01/29/22 06:43 01/29/22 06:43 Labs: 01/26/22 18:25 Blood Blood Culture - Preliminary 01/27/22 00:05 Sacral Wound Gram Stain - Final 01/27/22 00:05 Sacral Wound Culture - Final Pseudomonas Aeruginosa Escherichia Coli Laboratory WBC 23.8 X10^3/uL (3.6-10.0) H 01/29/22 06:43 RBC 2.34 X10^6/uL (4.7-6.0) L 01/29/22 06:43 Hgb 6.9 g/dL (13.5-18.0) L* D 01/29/22 06:43 Hct 20.1 % (42.0-54.0) L 01/29/22 06:43 MCV 86.0 fL (80.0-100.0) 01/29/22 06:43 MCH 29.4 pg (27.0-34.0) 01/29/22 06:43 MCHC 34.2 g/dL (33.0-35.0) 01/29/22 06:43 RDW 15.0 % (11.6-16.5) 01/29/22 06:43 Plt Count 36 X10^3/uL (150.0-450.0) L 01/29/22 06:43 Plt Count Comment Decreased (ADEQUATE) 01/29/22 06:43 MPV 9.7 fL (7.4-11.0) 01/29/22 06:43 Neut % (Auto) 91.2 % (42.0-75.0) H 01/29/22 06:43 Lymph % (Auto) 4.9 % (21.0-51.0) L 01/29/22 06:43 [place] % (Auto) 3.7 % (0.0-13.0) 01/29/22 06:43 Eos % (Auto) 0.0 % (0.9-2.9) L 01/29/22 06:43 Baso % (Auto) 0.2 % (0.2-1.0) 01/29/22 06:43 Neut # (Auto) 21.7 x10^3/uL (2.2-4.8) H 01/29/22 06:43 Lymph # (Auto) 1.2 X10^3/uL (1.3-2.9) L 01/29/22 06:43 [place] # (Auto) 0.9 x10^3/uL (0.3-0.8) H 01/29/22 06:43 Eos # (Auto) 0.0 x10^3/uL (0.0-0.2) 01/29/22 06:43 Baso # (Auto) 0.1 X10^3/uL (0.0-0.1) 01/29/22 06:43 Absolute Nucleated RBC 0.2 /100WBC 01/29/22 06:43 Total Counted 100 01/29/22 06:43 Neutrophils % (Manual) 83 % (39-76) H 01/29/22 06:43 Band Neutrophils % 10 % (0-10) 01/29/22 06:43 Lymphocytes % (Manual) 6 % (13-43) L 01/29/22 06:43 Monocytes % (Manual) 1 % (4-9) L 01/29/22 06:43 Smudge Cells Present 01/29/22 06:43 Plt Morphology Comment Normal (NORMAL) 01/29/22 06:43 RBC Morphology Normal (NORMAL) 01/29/22 06:43 Hypochromasia 1+ A 01/29/22 01:50 Anisocytosis Slight A 01/29/22 01:50 Target Cells Present 01/29/22 01:50 [place] Cells Slight A 01/27/22 07:32 APTT 45.4 SECONDS (22.9-36.5) H 01/29/22 07:19 PTT Comment - 01/29/22 07:19 Fibrinogen 145 mg/dL (239-489) L* 01/29/22 07:19 Sample Site Lb 01/26/22 18:07 ABG pH 7.390 (7.35-7.45) 01/26/22 18:07 ABG pCO2 33.0 mmHg (35.0-45.0) L 01/26/22 18:07 ABG pO2 62.0 mmHg (80.0-100.0) L 01/26/22 18:07 ABG HCO3 20.0 mmol/L (22-26) L 01/26/22 18:07 ABG O2 Saturation 91.0 % (90-100) 01/26/22 18:07 ABG Base Excess -4.2 mmol/L (-2.0-2.0) L 01/26/22 18:07 Cristopher Test Na 01/26/22 18:07 A-a Gradient 610.0 mmHg 01/26/22 18:07 FiO2 100.0 01/26/22 18:07 Blood Gas Comments Pt debby [email or web address] 01/26/22 18:07 Sodium 152 mmol/L (136-145) H* 01/29/22 06:43 Corrected Sodium 153 mmol/L (136-145) H 01/29/22 06:43 Potassium 3.1 mmol/L (3.5-5.1) L 01/29/22 06:43 Chloride 124 mmol/L (98-107) H* 01/29/22 06:43 Carbon Dioxide 20.4 mmol/L (21-32) L 01/29/22 06:43 BUN 28 mg/dL (7-18) H 01/29/22 06:43 Creatinine 0.71 mg/dL (0.70-1.30) 01/29/22 06:43 Est GFR (MDRD) Af Amer > 60 (>60) 01/29/22 06:43 Est GFR (MDRD) Non-Af > 60 (>60) 01/29/22 06:43 Glucose 152 mg/dL (65-99) H 01/29/22 06:43 Lactic Acid 2.9 mmol/L (0.4-2.0) H 01/26/22 22:23 Calcium 6.9 mg/dL (8.5-10.1) L 01/29/22 06:43 Corrected Calcium 9.5 mg/dL (8.5-10.1) 01/29/22 06:43 Phosphorus 2.8 mg/dL (2.6-4.7) 01/29/22 06:43 Magnesium 1.9 mg/dL (1.7-2.9) 01/29/22 06:43 Total Bilirubin 0.50 mg/dL (0.2-1.0) 01/29/22 06:43 AST 16 Units/L (15-37) 01/29/22 06:43 ALT 8 Units/L (12-78) L 01/29/22 06:43 Alkaline Phosphatase 74 Units/L (46-116) 01/29/22 06:43 Creatine Kinase 12 Units/L (39-308) L 01/26/22 18:25 CK-MB (CK-2) < 1.0 ng/mL (0-4.0) 01/26/22 18:25 CK/CKMB % Calc 8.3 % (<4) 01/26/22 18:25 Troponin I High Sens 6.2 ng/L (4.0-60.0) 01/26/22 18:25 Total Protein 3.5 g/dL (6.4-8.2) L 01/29/22 06:43 Albumin 0.8 g/dL (3.4-5.0) L 01/29/22 06:43 Globulin 2.7 g/dL (2.5-4.5) 01/29/22 06:43 Albumin/Globulin Ratio 0.3 Ratio (1.1-2.1) L 01/29/22 06:43 Lipase 13 Units/L (73-393) L 01/26/22 18:25 Specimen Type Catherized urine 01/27/22 06:32 Urine Color Yellow (YELLOW) 01/27/22 06:32 Urine Appearance Slightly hazy (CLEAR) 01/27/22 06:32 Urine pH 5.0 (5.0 - 8.0) 01/27/22 06:32 Ur Specific [place] 1.020 (1.000-1.030) 01/27/22 06:32 Urine Protein 2+ (NEGATIVE) 01/27/22 06:32 Urine Glucose (UA) Negative (NEGATIVE) 01/27/22 06:32 Urine Ketones 1+ (NEGATIVE) 01/27/22 06:32 Urine Blood Negative (NEGATIVE) 01/27/22 06:32 Urine Nitrite Negative (NEGATIVE) 01/27/22 06:32 Urine Bilirubin Negative (NEGATIVE) 01/27/22 06:32 Urine Urobilinogen Normal (NORMAL) 01/27/22 06:32 Ur Leukocyte Esterase 1+ (NEGATIVE) 01/27/22 06:32 Urine RBC 0-2 /HPF (0-3) 01/27/22 06:32 Urine WBC 0-2 /HPF (0-5) 01/27/22 06:32 Ur Squamous Epith Cells Few /HPF (NEGATIVE) 01/27/22 06:32 Amorphous Sediment Trace /HPF (NEGATIVE) 01/27/22 06:32 Urine Bacteria Trace /HPF (NEGATIVE) 01/27/22 06:32 Hyaline Casts Moderate /LPF (NEGATIVE) 01/27/22 06:32 Ur Culture Indicated? No/not indicated 01/27/22 06:32 Stool Description 100 grams 01/28/22 16:45 Stl Occult Blood (IFOB) Positive (NEGATIVE) A 01/28/22 16:45 Vancomycin Trough 21.9 ug/mL (15-20) H* 01/28/22 10:47 SARS-CoV-2 (PCR) Negative (NEGATIVE) 01/26/22 18:45 Influenza Type A (PCR) Negative (NEGATIVE) 01/26/22 18:45 Influenza Type B (PCR) Negative (NEGATIVE) 01/26/22 18:45 RSV (PCR) Negative (NEGATIVE) 01/26/22 18:45 Blood Type O POSITIVE 01/28/22 07:06 Antibody Screen Negative 01/28/22 07:06 Crossmatch See Detail 01/28/22 07:06 Plan (1) Adult failure to thrive: Status: Acute (2) Pulmonary embolism: Status: Acute (3) Deep vein thrombosis (DVT) of left lower extremity: Status: Acute (4) Lactic acidosis: Status: Acute (5) Sacral decubitus ulcer, stage III: Status: Acute (6) Dehydration: Status: Acute (7) Electrolyte abnormality: Status: Acute (8) Anorexia: Status: Acute (9) Colon cancer: Status: Acute (10) Thrombocytopenia: Status: Acute (11) Pneumonia: Status: Acute
--- NOTE | 2022-01-29 12:58 | NOTE.SOAP ---
Soap Note Note for Day of Date of Exam: 01/29/22 Subjective Data Subjective Data: Patient not seen by me. All information referred by his nurse. S/P placement of b/l pulmonary artery EKOS thrombolytic catheters and EKOS placed in left leg DVT. Overnight has been relatively stable. Was hypotensive and tachycardic last night and Hgb was 4.3. No obvious signs of bleeding . Given 3 units of blood and was on dopamine drip for a while. Hgb risen to 6.9 and to receive 2 more units of blood. Probably dry as BUN of 30 and low urine output requiring fluid boluses. Now decreased to 50 5 inspired oxygen . Significant edema. WB was > 30 k now down to 23 k. On IV antibiotics and repeat cultures obtained. Objective Data Pulse Rate: 115 Respiratory Rate: 24 Blood Pressure: 116/1 O2 Sat by Pulse Oximetry: 97 Objective Data: Both pulmonary artery catheters removed and sheaths left in the right femoral vein. Continue TPA in left leg DVT . Fibrinogen about 140 Assessment Assessment: b/l PE and DVT left leg Plan Plan: As above , removed pulmonary artery catheters , leave sheaths in right femoral vein with heparin running. Continue TPA through the left leg catheter. Return to OR on Tuesday and will re- evaluate left leg at that time with venogram. Will plan repeat CTA of chest next week.
[2022-01-29] MEDS: MAGNESIUM SULFATE 1 GRAM/100 mL PREMIX 1 G/100 ML BAG IV PRN ×2 (13:02→16:23)
[2022-01-29 13:20] LABS: BASOPHILS # (AUTO) 0.1 X10^3/uL (0.0-0.1); BASOPHILS % (AUTO) 0.5 % (0.2-1.0); HEMATOCRIT 27.3 % (42.0-54.0); LYMPHOCYTES # (AUTO) 1.2 X10^3/uL (1.3-2.9); LYMPHOCYTES % (AUTO) 5.6 % (21.0-51.0); MEAN CORPUSCULAR HEMOGLOBIN 30.1 pg (27.0-34.0); MEAN CORPUSCULAR HGB CONC 34.8 g/dL (33.0-35.0); MEAN CORPUSCULAR VOLUME 86.5 fL (80.0-100.0); MEAN PLATELET VOLUME 9.6 fL (7.4-11.0); MONOCYTES % (AUTO) 4.6 % (0.0-13.0); NEUTROPHILS # (AUTO) 18.9 x10^3/uL (2.2-4.8); NEUTROPHILS % (AUTO) 89.3 % (42.0-75.0); RED BLOOD COUNT 3.16 X10^6/uL (4.7-6.0); RED CELL DISTRIBUTION WIDTH 14.7 % (11.6-16.5); WHITE BLOOD COUNT 21.2 X10^3/uL (3.6-10.0)
[2022-01-29 13:22] LABS: HEMOGLOBIN 9.5 g/dL (13.5-18.0)
[2022-01-29] MEDS: TPN ELECTROLYTES IV SCH ×5 (13:37)
[2022-01-29] MEDS: MVI IV SCH ×5 (13:37)
[2022-01-29] MEDS: CLINIMIX IV SCH ×5 (13:37)
[2022-01-29] MEDS: [UNRECOGNIZED DRUG - OTHER] IV SCH ×5 (13:37)
[2022-01-29 13:38] LABS: BAND NEUTROPHILS % 7 % (0-10); SMUDGE CELLS PRESENT
[2022-01-29 13:39] LABS: BURR CELLS SLIGHT; PLATELET MORPHOLOGY COMMENT NORMAL (NORMAL)
[2022-01-29] MEDS: MORPHINE SULFATE INJ 2 MG INJ IVP PRN ×2 (17:04→21:33)
[2022-01-29 18:42] LABS: BASOPHILS % (AUTO) 0.1 % (0.2-1.0); HEMATOCRIT 31.2 % (42.0-54.0); HEMOGLOBIN 10.8 g/dL (13.5-18.0); LYMPHOCYTES # (AUTO) 1.1 X10^3/uL (1.3-2.9); LYMPHOCYTES % (AUTO) 4.9 % (21.0-51.0); MEAN CORPUSCULAR HEMOGLOBIN 28.8 pg (27.0-34.0); MEAN CORPUSCULAR HGB CONC 34.5 g/dL (33.0-35.0); MEAN CORPUSCULAR VOLUME 83.7 fL (80.0-100.0); MEAN PLATELET VOLUME 10.2 fL (7.4-11.0); MONOCYTES # (AUTO) 1.1 x10^3/uL (0.3-0.8); NEUTROPHILS # (AUTO) 20.5 x10^3/uL (2.2-4.8); RED BLOOD COUNT 3.73 X10^6/uL (4.7-6.0); RED CELL DISTRIBUTION WIDTH 16.5 % (11.6-16.5); WHITE BLOOD COUNT 22.7 X10^3/uL (3.6-10.0)
[2022-01-29 19:04] LABS: CHLORIDE 125 mmol/L (98-107); SODIUM 153 mmol/L (136-145)
[2022-01-29 19:25] LABS: BAND NEUTROPHILS % 3 % (0-10)
[2022-01-29 19:26] LABS: PLATELET MORPHOLOGY COMMENT NORMAL (NORMAL)
[2022-01-29 19:27] LABS: BURR CELLS PRESENT
[2022-01-29] MEDS ORDERED: NICOTINE PATCH TD SCH (23:00)
[2022-01-30 00:39] VITALS: BP 90/54
== END 2022-01-30 05:15 | disposition expired | DRG 166 ==
LOC: ER 17:43 → MED/SURG 20:00 → ICU 20:36
PROVIDERS: ADMIT Family Medicine; ATTEND Family Medicine
DX: E87.8 Other disorders of electrolyte and fluid balance, not elsewhere classified; C18.9 Malignant neoplasm of colon, unspecified; D69.6 Thrombocytopenia, unspecified; J18.8 Other pneumonia, unspecified organism; R63.0 Anorexia; L89.153 Pressure ulcer of sacral region, stage 3; I82.412 Acute embolism and thrombosis of left femoral vein; R79.1 Abnormal coagulation profile; I46.9 Cardiac arrest, cause unspecified; I26.99 Other pulmonary embolism without acute cor pulmonale; E86.0 Dehydration; B96.29 Other Escherichia coli [E. coli] as the cause of diseases classified elsewhere; Z20.822 Contact with and (suspected) exposure to COVID-19; I87.2 Venous insufficiency (chronic) (peripheral); R62.7 Adult failure to thrive; Z78.1 Physical restraint status; B96.5 Pseudomonas (aeruginosa) (mallei) (pseudomallei) as the cause of diseases classified elsewhere; I82.432 Acute embolism and thrombosis of left popliteal vein